=== PATIENT | male | born 1935 | race Caucasian/White ===

== ENCOUNTER 2019-11-29 07:43 | Outpatient (CLI) | payer MEDICARE, OTHER, SELFPAY ==
--- NOTE | 2019-11-29 | ECHO_ITS ---
Patient Info Name: Marvin Henderson Age: 83 years : 1935 Gender: Male Ht: 63 in Wt: 155 lbs BSA: 1.79 m2 HR: 76 bpm BP: 141 / 77 mmHg Heart Rhythm: Sinus Rhythm Technical Quality: Good Exam Date: 11/29/2019 8:35 AM Exam Location: [facility] Patient Status: Outpatient Admit Date: 11/29/2019 Staff Ordering Physician: Nithya Rider MD Street Supervisor: Jose Mejia, RHETTCS, RT Attending Provider: Nithya Rider MD Referring Physician: Adry ENGLAND; Exam Type: CA echo doppler color flow Study Info Indications I50.9 - Heart failure, unspecified Complete two-dimensional, color flow and Doppler transthoracic echocardiogram is performed. Summary 1. Left ventricular chamber dimension is normal. 2. Left ventricular systolic function is normal, estimated at 50-55%. 3. There is moderate aortic valve regurgitation. 4. Very mild amounts of mitral tricuspid and pulmonic insufficiency. 5. Enlarged left atrium. Left Ventricle Left ventricular chamber dimension is normal. Left ventricular systolic function is normal, estimated at 50-55%. The left ventricular diastolic function is normal. Right Ventricle Right ventricular chamber dimension is normal. Left Atria Left atrial chamber dimension is mildly enlarged. Right Atria Right atrial chamber dimension is normal. Aortic Valve The aortic valve is normal. There is moderate aortic valve regurgitation. Pulmonic Valve The pulmonic valve is not well visualized. There is mild pulmonic regurgitation. Mitral Valve The mitral valve has normal leaflets. There is mild mitral valve regurgitation. Tricuspid Valve The tricuspid valve leaflets are normal. There is trace tricuspid valve regurgitation. Pericardium/Pleural The pericardium appears normal. Aorta The aortic root size at the sinus of Valsalva is normal. Left Ventricular Outflow Tract Name Value Normal LVOT 2D LVOT Diameter 1.9 cm LVOT Doppler LVOT Peak Gradient 3 mmHg LVOT Mean Gradient 1 mmHg LVOT VTI 18 cm LVOT VTI/AV VTI Ratio 0.9 LVOT Stroke Volume 54 ml LVOT CO 3.4 l/min LVOT CI 1.9 l/min/m2 Pulmonic Valve Name Value Normal PV Doppler PV Peak Gradient 4 mmHg Mitral Valve Name Value Normal MV Doppler MV Decel Campbell 451 cm/s2 MV PHT 56 ms MV Area (PHT)
== END 2019-11-29 07:44 | disposition home or self-care (01) ==
LOC: ANHCARD 07:45
PROVIDERS: PCP Family Medicine; Visit Provider Internal Medicine Cardiovascular Disease
DX: I50.810 Right heart failure, unspecified (principal); R60.0 Localized edema; I51.7 Cardiomegaly
CPT/HCPCS: 93306

== ENCOUNTER 2019-12-02 07:45 | Outpatient (CLI) | payer MEDICARE, OTHER, SELFPAY ==
[2019-12-02 08:26] LABS: Blood Urea Nitrogen 15 mg/dL (9-20); Calcium 8.9 mg/dL (8.4-10.2); Carbon Dioxide 28 mmol/L (22-30); Chloride 99 mmol/L (98-107); Estimated Glomerular Filt Rate > 60; Glucose 109 mg/dL (75-110); Sodium 134 mmol/L (137-145)
[2019-12-02 08:35] LABS: NT Pro B Type Natriuretic Pept 371 PG/ML (5-100)
[2019-12-02 08:42] LABS: Add Urine Microscopic? YES; Appearance Urine Clear (Clear); Bilirubin Urine Negative (Negative); Blood Urine Negative (Negative); Color Urine Yellow (Yellow); Glucose Urine UA Negative (Negative); Ketones Urine Negative (Negative); Leukocyte Esterase Ur Negative LEU/UL (NEGATIVE); Mucus Urine Moderate /lpf; Nitrate Urine Negative (Negative); Protein Urine Negative (Negative); RBC Urine 0-2 /hpf (0-2); Specific Grav Ur 1.021 (1.001-1.035); WBC Urine 0-3 /hpf (0-3)
== END 2019-12-02 07:46 | disposition home or self-care (01) ==
PROVIDERS: PCP Family Medicine; Visit Provider Internal Medicine Cardiovascular Disease
DX: R60.0 Localized edema (principal); I50.810 Right heart failure, unspecified
CPT/HCPCS: 36415; 80048; 81001; 83880

== ENCOUNTER 2021-03-10 08:21 | Emergency (ER) | payer MEDICARE, OTHER, SELFPAY ==
--- NOTE | ~2021-03-10 | XR_ITS ---
EXAMINATION: XR shoulder RT min 2V DATE: 03/10/2021 09:06 INDICATION: Right shoulder pain. TECHNIQUE: 6 views of right shoulder were obtained. COMPARISON: None. FINDINGS: Bone alignment is normal. There is a permeative lytic lesion of proximal humeral diaphysis. There is a pathologic transverse fracture. The distal fracture fragment demonstrates 10 degrees late ral angulation. There is mild osteoarthritis of glenohumeral joint and severe osteoarthritis of acrom ioclavicular joint. IMPRESSION: 1. Permeative lytic lesion of proximal humeral diaphysis with pathologic fracture, consistent with me tastatic disease versus multiple myeloma. I discussed this result with Dr. Carrillo. Reviewed, dictated and finalized at location A. IMPRESSION: 1. Permeative lytic lesion of proximal humeral diaphysis with pathologic fractu re, consistent with metastatic disease versus multiple myeloma. I discussed thi s result with Dr. Carrillo.
[2021-03-10 08:30] VITALS: BP 173/87; PULSE 60; RESP 16; TEMP 36.6; O2SAT 100
--- NOTE | 2021-03-10 09:07 | ED.GENADULT ---
HPI - General Adult General Chief complaint: Extremity Injury, Upper Stated complaint: Right shoulder pain Time Seen by Provider: 03/10/21 09:02 Source: patient and family Mode of arrival: ambulatory Limitations: no limitations History of Present Illness HPI narrative: 85-year-old man with history of multiple myeloma, here for sudden worsening of right arm pain this morning after he dropped he will. Per report from family and patient he has been complaining of right upper arm pain for the past week, and left rib pain. Patient was treated for multiple myeloma from April 2019 through October 2019. States that he goes to his follow-up appointments and is told he is well. He denies any recent weight loss or worsening fatigue. Onset (ago): week(s) Quality: aching Relieving factors: immobilization Exacerbating factors: movement Associated symptoms: denies other symptoms Related Data Home Medications Medication Instructions Recorded Confirmed alfuzosin mg PO 03/10/21 apixaban [Eliquis] mg 03/10/21 atorvastatin 03/10/21 03/10/21 diltiazem HCl PO 03/10/21 finasteride mg 03/10/21 furosemide 03/10/21 methocarbamol mg 03/10/21 oxybutynin chloride 03/10/21 timolol maleate drp 03/10/21 travoprost [Travatan Z] drp 03/10/21 Allergies Allergy/AdvReac Type Severity Reaction Status Date / Time Wasp Allergy Unknown Unknown Uncoded 03/10/21 08:39 Review of Systems Review of Systems: All systems reviewed & are unremarkable except as noted in HPI and below [facility] Social History Social History (Updated 03/10/21 @ 11:43 by Charity Buitrago PA-C) Smoking status: Never smoker Alcohol intake: current Alcohol use details: 2 beers/day Substance use: never Living arrangements: with family Exam Const: General: no acute distress and alert Orientation/consciousness: patient oriented x3 HENMT: Head: normal to inspection Eyes: Pupils: Equal, round and reactive pupils present Resp: Effort & Inspection: normal respiratory effort Auscultation: clear to auscultation bilaterally Cardio: Rate: regular rate Rhythm: regular rhythm GI: GI Palp: Yes Soft to palpation Skin: General skin exam: normal color Wounds: no wounds Other: no bruising at fracture site Neuro: General: patient oriented x3 Extrem: Right upper extremity: shoulder/upper arm tenderness (pain with movement or touch ) of the mid-shaft humerus and axillary nerve sensory function normal Other: holding arm to side and across abdomen. Psych: Mental Status: mental status grossly normal Course Course Emergency Course: Spoke with Dr. Block, recommends referal to ortho/oncology at [place]. Spoke with Dr. Henley, oncology at [place]. He would like him placed in splint and they will see outpatien with referral to orthopedic surgery. Vital Signs Vital signs: Vital Signs Temperature 36.6 C 03/10/21 08:30 Pulse Rate 60 03/10/21 08:30 Respiratory Rate 16 03/10/21 08:30 Blood Pressure 173/87 H 03/10/21 08:30 Pulse Oximetry 100 03/10/21 08:30 Temperature 36.6 C 03/10/21 08:30 Pulse Rate 56 L 03/10/21 11:16 Respiratory Rate 16 03/10/21 11:16 Blood Pressure 145/77 H 03/10/21 11:16 Pulse Oximetry 99 03/10/21 11:16 Medical Decision Making Vital Signs Vital Signs: Vital Signs Temperature 36.6 C 03/10/21 08:30 Pulse Rate 60 03/10/21 08:30 Respiratory Rate 16 03/10/21 08:30 Blood Pressure 173/87 H 03/10/21 08:30 Pulse Oximetry 100 03/10/21 08:30 Temperature 36.6 C 03/10/21 08:30 Pulse Rate 56 L 03/10/21 11:16 Respiratory Rate 16 03/10/21 11:16 Blood Pressure 145/77 H 03/10/21 11:16 Pulse Oximetry 99 03/10/21 11:16 Lab Data Result diagrams: 03/10/21 11:08 03/10/21 11:07 Labs: Lab Results 03/10/21 03/10/21 Range/Units 11:07 11:08 WBC 7.4 (4.5-10.0) K/mm3 RBC 3.75 L (4.6-6.20) M/mm3 Hgb 12.6 L (14.0-18.0) g/dL Hct 36.7 L (42.0
[2021-03-10 11:13] LABS: Basophils Percent Auto 0.3 % (0.2-1.2); Eosinophils Absolute Auto 0.1 K/mm3 (0-0.3); Eosinophils Percent Auto 0.7 % (0-4.4); Hematocrit 36.7 % (42.0-52.0); Hemoglobin 12.6 g/dL (14.0-18.0); Immature Granulocyte Absolute 0.03 K/mm3 (0.00-0.031); Immature Granulocyte Percent A 0.4 % (0-0.5); Lymphocytes Absolute Auto 1.17 K/mm3 (0.9-3.2); Lymphocytes Percent Auto 15.8 % (18.3-44.2); Mean Corpuscular HGB Conc 34.3 g/dl (32-36); Mean Corpuscular Hemoglobin 33.6 pg (26-34); Mean Corpuscular Volume 97.9 fl (80-100); Mean Platelet Volume 9.8 fl (7.4-10.4); Monocytes Percent Auto 13.5 % (2.6-8.5); Neutrophils Absolute Auto 5.1 K/mm3 (1.3-6.7); Neutrophils Percent Auto 69.3 % (45.5-73.1); Platelet Count Result 166 k/mm3 (150-375); Red Blood Count 3.75 M/mm3 (4.6-6.20); Red Cell Distribution Width 12.7 % (11.5-14.5); White Blood Count 7.4 K/mm3 (4.5-10.0)
[2021-03-10 11:16] VITALS: BP 145/77; PULSE 56; RESP 16; O2SAT 99
[2021-03-10 11:30] LABS: Alanine Aminotransferase 15 U/L (4-50); Albumin Level 3.8 g/dL (3.5-5.1); Alkaline Phosphatase 103 U/L (38-126); Anion Gap 10 mmol/L (8-16); Aspartate Amino Transferase 29 U/L (17-59); Bilirubin,Total 0.6 mg/dL (0.2-1.3); Blood Urea Nitrogen 13 mg/dL (9-20); Calcium 9.3 mg/dL (8.4-10.2); Carbon Dioxide 27 mmol/L (22-30); Chloride 101 mmol/L (98-107); Estimated CRCL calculation 46 ml/min; Estimated Glomerular Filt Rate > 60; Glucose 118 mg/dL (65-110); Potassium 4.4 mmol/L (3.4-5.0); Sodium 138 mmol/L (137-145)
[2021-03-10] MEDS: HYDROcodone/acetaminophen (*CRX) 10-325 MG TABLET 1 TAB PO (12:21)
[2021-03-10 14:27] VITALS: BP 138/66; PULSE 64; RESP 16; O2SAT 99
== END 2021-03-10 14:28 | disposition home or self-care (01) ==
PROVIDERS: Physician Assistant; Emergency Provider Emergency Medicine; PCP Family Medicine
DX: M84.521A Pathological fracture in neoplastic disease, right humerus, initial encounter for fracture (principal)
CPT/HCPCS: 29105; 36415; 73030; 80053; 85025; 99284; A4565; A9270

== ENCOUNTER 2021-05-02 16:34 | Inpatient (IN) | payer MEDICARE, OTHER, SELFPAY ==
[2021-05-02] VITALS (49 sets, daily range): BP systolic 102–127; BP diastolic 59–81; PULSE 63–78; RESP 9–21; TEMP 36.6–36.8; O2SAT 89–95; BMI 23.7
--- NOTE | ~2021-05-02 | XR_ITS ---
EXAMINATION: XR chest 1V portable DATE: 05/03/2021 07:05 INDICATION: Shortness of breath. TECHNIQUE: A single frontal view of the chest was obtained. COMPARISON: Chest single view 05/02/2021, chest CT 08/05/2018 FINDINGS: There are airspace opacities in the perihilar regions and lower lung zones. There is a diff use interstitial pattern. No pleural effusion or pneumothorax. The heart size is normal. There is int ernal fixation of right humerus. IMPRESSION: 1. Worsened diffuse lung disease, consistent with moderate pulmonary edema versus pneumonia. Reviewed, dictated and finalized at location A. E REELING MACHINE OPERATOR IMPRESSION: 1. Worsened diffuse lung disease, consistent with moderate pulmonary edema vers us pneumonia.
--- NOTE | ~2021-05-02 | XR_ITS ---
EXAMINATION: XR chest 1V portable DATE: 05/04/2021 05:57 INDICATION: Respiratory failure. TECHNIQUE: A single frontal view of the chest was obtained. COMPARISON: Chest single view 05/03/2021 FINDINGS: There are airspace opacities in all right lung zones and in left mid and lower lung zones w ith a perihilar and lower lung predominance. No pleural effusion or pneumothorax. The heart size is n ormal. There is internal fixation of right humerus. IMPRESSION: 1. Diffuse lung disease with mild worsening on the right and improvement on the left, consistent with moderate pulmonary edema versus pneumonia. Reviewed, dictated and finalized at location A. NING FRAME CLEANER
--- NOTE | ~2021-05-02 | XR_ITS ---
XR chest 1V portable 05/02/2021 18:30 Indication: Syncope. History of A. fib. Procedure: AP portable chest Comparison: 08/05/2018 Findings: There is bilateral airspace disease of the lower lungs. Cardiomegaly. There is atherosclero sis. No significant effusion or pneumothorax. No acute osseous abnormality. Impression: 1: Bibasilar airspace disease, compatible with pneumonia. Reviewed, dictated and finalized at location A. ERCAM PROGRAMMER Impression: 1: Bibasilar airspace disease, compatible with pneumonia.
--- NOTE | ~2021-05-02 | CT_ITS ---
EXAMINATION: CT facial bones wo con DATE: 05/03/2021 16:43 INDICATION: Right parotid nodule. Multiple myeloma. TECHNIQUE: High resolution computed tomography (CT) of the maxillofacial bones was performed without intravenous contrast. Additional sagittal and coronal reconstructions were performed. Automated expos ure control and iterative reconstruction technique were employed. The dose-length product was 297.22 mGy-cm. COMPARISON: None FINDINGS: Partially visualized right frontal deep scalp lipoma . Large lytic lesion completely occupying the me dullary space at the right mandibular condyle with small regions of full-thickness cortical erosion a s well as with extension into the neck of the mandible where there is a pathologic fracture. There is extraosseous extension of soft tissue density extending superficially from the lateral margin of the medial epicondyle which measures approximately 1.7 x 1.4 x 1.1 cm which appears to infiltrate the de ep margin of the right parotid. There is mild likely reactive edema along the inferior and superficia l margin of the right parotid likely related to the fracture. No other masses identified or pathologi gianluca enlarged lymphadenopathy at the visualized face or upper neck. Severe spondylosis in the visual ized mid to upper cervical spine. Additional small lucent lesions in the cervical spine, the largest but still subcentimeter lesions at the right posterior inferior aspect of the C2 vertebral body and a t the left lateral mass of C2 which are suspicious for additional multiple myeloma. Changes of bilate ral intraocular lens replacement. Mastoid air cells and middle ear cavities are clear. Prior left max illary sinus antral window procedure. IMPRESSION: 1. Large lytic lesion at the right mandibular condyle with associated pathologic fracture and extra o sseous extension of a soft tissue mass infiltrating the deep margin of the right parotid most consist ent with provided history of multiple myeloma. 2. A couple additional smaller lytic lesions at C2 also suspicious for multiple myeloma. Reviewed, dictated and finalized at location H. DREN'S BOOK AUTHOR IMPRESSION: 1. Large lytic lesion at the right mandibular condyle with associated pathologi c fracture and extra osseous extension of a soft tissue mass infiltrating the d eep margin of the right parotid most consistent with provided history of multip le myeloma. 2. A couple additional smaller lytic lesions at C2 also suspicious for multiple myeloma.
--- NOTE | ~2021-05-02 | CT_ITS ---
EXAMINATION: CT brain wo con DATE: 05/02/2021 17:37 INDICATION: Near syncope TECHNIQUE: Computed tomography (CT) of the head was performed without intravenous contrast. The dose- length product was 605.33 mGy-cm. Automated exposure control and iterative reconstruction technique w ere employed. COMPARISON: CT dated 06/11/2017 FINDINGS: No acute intracranial hemorrhage, infarction, mass or mass effect. Paranasal sinuses and ma stoids are pneumatized. Generalized atrophy. There are scattered mild periventricular and subcortical white matter changes, most likely related to small vessel ischemic disease (microangiopathy). Chroni c fracture deformity of the right zygomatic arch. IMPRESSION: 1. No acute intracranial abnormality. 2: Chronic age-related findings. Reviewed, dictated and finalized at location A. NCE WHEEL MOTION INSPECTOR
--- NOTE | ~2021-05-02 | US_ITS ---
EXAMINATION:US venous doppler LE BI INDICATION:Elevated d-dimer TECHNIQUE: Multiple grayscale, color flow and Doppler images of the right and left lower extremity de ep venous systems were obtained and reviewed. COMPARISON:No prior studies for comparison. FINDINGS: The common femoral, superficial femoral and popliteal veins demonstrate normal respiratory variation, augmentation and compressibility. Color flow is also seen within the posterior tibial, pe roneal, greater saphenous and profunda veins. IMPRESSION: 1: No lower extremity deep venous thrombosis. Reviewed, dictated and finalized at location A. DOZER ENGINEER
--- NOTE | ~2021-05-02 | US_ITS ---
EXAMINATION: US carotid duplex BI DATE: 05/03/2021 10:54 INDICATION: Syncopal episode TECHNIQUE: Grayscale, color Doppler, and pulsed Doppler images of the cervical carotid arteries were obtained. The degree of vessel stenosis is placed in one of the following categories: normal, <50%, 5 0-69%, >=70% but less than near-occlusion, near-occlusion, or total occlusion. Note that percent sten osis relative to normal distal artery lumen diameter is indirectly measured from velocity measurement s as described by David, et al. Radiology 2003; 229:340-346. Notes: Normal: Peak systolic velocity <125 centimeters/sec and no plaque <50%. Peak systolic velocity <125 ( EDV <40; ICA/CCA PSV ratio <2.0; used these factors only a tandem lesions or low cardiac output or co ntralateral disease) 50-69 %: PSV 125-230 (EDV 40-100; ratio 2-4) >= 70% but less than near occlusion: PSV greater than 230 (EDV > 100; ratio> 4.0) Near Occlusion: PSV that is variable; markedly narrowed lumen Occlusion: Absent flow on color/spectral Doppler and no lumen on yuan scale. COMPARISON: None. FINDINGS: RIGHT: The right common carotid artery (CCA) peak systolic velocity (PSV) is 91 cm/s. The right internal car otid artery (ICA) PSV is 91 cm/s. The right ICA end-diastolic velocity (EDV) is 18 cm/s. The right IC A/CCA PSV ratio is 1.0. The external carotid artery (ECA) PSV is 81 cm/s. There is antegrade flow in the right vertebral artery. LEFT: The left CCA PSV is 98 cm/s. The left ICA PSV is 94 cm/s. The left ICA EDV is 22 cm/s. The left ICA/C CA PSV ratio is 1.0. The ECA PSV is 64 cm/s. There is antegrade flow in the left vertebral artery. IMPRESSION: 1. Less than 50% stenosis in the right internal carotid artery by sonographic criteria. 2. Less than 50% stenosis in the left internal carotid artery by sonographic criteria. Reviewed, dictated and finalized at location A. NEER STATION MAINLINE IMPRESSION: 1. Less than 50% stenosis in the right internal carotid artery by sonographic joão ballesteros. 2. Less than 50% stenosis in the left internal carotid artery by sonographic rey helm.
--- NOTE | 2021-05-02 17:08 | ED.GENADULT ---
HPI - General Adult General Chief complaint: Syncope Stated complaint: NEAR SYNCOPE Time Seen by Provider: 05/02/21 16:35 Source: patient and RN notes reviewed History of Present Illness HPI narrative: Patient is a 85 y/o male for unresponsive episode. states that they were both walking back to the house and he began to fall over. She caught him and supported him to back to the house. She sat him down and he was not responsive. She state that the he seemed to be gasping for air. This lasted up to 1 minute an he became awake. He has no complaint at this time. Related Data Home Medications Medication Instructions Recorded Confirmed alfuzosin mg PO 03/10/21 apixaban [Eliquis] mg BID 03/10/21 atorvastatin DAILY 03/10/21 03/10/21 diltiazem HCl PO DAILY 03/10/21 finasteride mg DAILY 03/10/21 furosemide DAILY 03/10/21 oxybutynin chloride QPM 03/10/21 timolol maleate drp BID 03/10/21 travoprost [Travatan Z] drp QPM 03/10/21 dexamethasone 05/02/21 05/02/21 lenalidomide [Revlimid] mg PO 05/02/21 morphine 05/02/21 05/02/21 travoprost [Travatan Z] drp QPM 05/02/21 Allergies Allergy/AdvReac Type Severity Reaction Status Date / Time bee venom protein (honey bee) Allergy Unknown Verified 05/02/21 16:46 [bees] Wasp Allergy Unknown Unknown Uncoded 05/02/21 16:46 Review of Systems Constitutional: Constitutional: Denies chills, Denies fever(s), Denies headache(s) and Denies weakness Eyes: Eyes: Denies blurry vision ENT: Denies headache(s) and Denies neck pain Cardiovascular: Cardiovascular: Denies chest pain and Denies dyspnea Respiratory: Respiratory: Denies cough and Denies dyspnea Gastrointestinal: Gastrointestinal: Denies abdominal pain, Denies diarrhea, Denies nausea and Denies vomiting Genitourinary: Genitourinary: Denies hematuria and Denies dysuria Musculoskeletal: Musculoskeletal: Denies back pain and Denies neck pain Neurologic: Reports syncope, Denies headache(s) and Denies weakness [facility] Past Medical History Medical History (Updated 05/02/21 @ 23:02 by Yun Asher MD) Anemia Atrial fibrillation BPH (benign prostatic hyperplasia) Glaucoma Hepatitis B carrier History of prostate cancer History of subdural hematoma Hyperlipidemia Multiple myeloma Right humeral fracture 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 Surgical History Surgical History (Updated 05/02/21 @ 22:44 by Abril Hermosillo NP) Cataract extraction status History of cranial surgery Barrel hole due to subdural hematoma S/P ORIF (open reduction internal fixation) fracture Right humerus Family History Family History (Updated 05/02/21 @ 22:46 by Abril Hermosillo NP) Mother Cerebrovascular accident Father Carcinoma of colon Sibling Carcinoma of colon Social History Social History (Updated 05/02/21 @ 22:47 by Abril Hermosillo NP) Social History: The patient served in the [employer] for 30 years where he worked in [employer]. He is and lives with his who still works full-time. The patient and his have adopted a daughter. He is a lifelong nonsmoker. His is the durable power privacy attorney for healthcare. Code status full code Smoking status: Never smoker Alcohol intake: current Alcohol use details: 2 beers/day Substance use: never Exam Const: General: no acute distress and well developed Orientation/consciousness: oriented to person, oriented to place, oriented to time and patient oriented x3 HENMT: Head: normocephalic Ears: external ears normal General nose exam: Normal external nose present Eyes: General: appearance normal, both eyes and all related structures Conjunctivae: conjunctivae normal Neck: Neck: normal visual inspection and full ROM Chest: Chest palpation & inspection: normal inspection of the chest and no tenderness Resp: Effort & Inspection: normal respiratory effort Auscultation: clear to auscultation bilaterally Cardio: Rate: regu
--- NOTE | 2021-05-02 17:16 | ECG_ITS ---
Measurements Intervals [place] Rate: 68 P: -3 CT: 172 QRS: 44 QRSD: 89 T: 44 QT: 422 QTc: 452 Interpretive Statements SINUS RHYTHM WITH SINUS ARRHYTHMIA INCOMPLETE RIGHT BUNDLE BRANCH BLOCK MINIMAL Q WAVES- ANTEROLATERAL LEADS BASELINE WANDER- III BORDERLINE ECG Electronically Signed On 05-02-2021 20:13:18 MANAGER OF CASE by Nam Rosenberg D.O.
--- NOTE | 2021-05-02 17:37 | PC.NURSE ---
Pt off floor to radiology.
[2021-05-02] MEDS: SODIUM CHLORIDE 0.9% IV 1,000 ML 999 ML IV CONT (17:43)
[2021-05-02 18:00] LABS: Basophils Percent Auto 0.1 % (0.2-1.2); Eosinophils Percent Auto 0.4 % (0-4.4); Hematocrit 22.3 % (42.0-52.0); Hemoglobin 7.4 g/dL (14.0-18.0); Immature Granulocyte Absolute 0.04 K/mm3 (0.00-0.031); Immature Granulocyte Percent A 0.5 % (0-0.5); Lymphocytes Absolute Auto 0.79 K/mm3 (0.9-3.2); Lymphocytes Percent Auto 9.6 % (18.3-44.2); Mean Corpuscular HGB Conc 33.2 g/dl (32-36); Mean Corpuscular Hemoglobin 34.4 pg (26-34); Mean Corpuscular Volume 103.7 fl (80-100); Mean Platelet Volume 10.5 fl (7.4-10.4); Monocytes Absolute Auto 0.7 K/mm3 (0.1-0.6); Monocytes Percent Auto 7.9 % (2.6-8.5); Neutrophils Absolute Auto 6.7 K/mm3 (1.3-6.7); Neutrophils Percent Auto 81.5 % (45.5-73.1); Platelet Count Result 124 k/mm3 (150-375); Red Blood Count 2.15 M/mm3 (4.6-6.20); Red Cell Distribution Width 15.6 % (11.5-14.5); White Blood Count 8.2 K/mm3 (4.5-10.0)
[2021-05-02 18:10] LABS: Alanine Aminotransferase 39 U/L (4-50); Albumin Level 3.4 g/dL (3.5-5.1); Alkaline Phosphatase 109 U/L (38-126); Anion Gap 11 mmol/L (8-16); Aspartate Amino Transferase 89 U/L (17-59); Bilirubin,Total 0.9 mg/dL (0.2-1.3); Blood Urea Nitrogen 38 mg/dL (9-20); Calcium 7.3 mg/dL (8.4-10.2); Carbon Dioxide 23 mmol/L (22-30); Chloride 88 mmol/L (98-107); Estimated CRCL calculation 27 ml/min; Estimated Glomerular Filt Rate 45; Glucose 153 mg/dL (65-110); Potassium 4.8 mmol/L (3.4-5.0); Sodium 122 mmol/L (137-145)
[2021-05-02 18:40] LABS: Add Urine Microscopic? YES; Appearance Urine Cloudy (Clear); Bacteria Urine Trace /hpf; Bilirubin Urine Negative (Negative); Blood Urine Negative (Negative); Color Urine Yellow (Yellow); Glucose Urine UA Negative (Negative); Hyaline Casts Urine 15-19 /lpf; Ketones Urine Negative (Negative); Leukocyte Esterase Ur Negative LEU/UL (Negative); Mucus Urine Rare /lpf; Nitrate Urine Negative (Negative); Protein Urine 1+ mg/dL (Negative); Specific Grav Ur 1.016 (1.001-1.035); Squamous Epithelial Cell Urine Rare /hpf (Few); Urobilinogen Urine Negative mg/dL (<2.0)
[2021-05-02 19:03] LABS: NT Pro B Type Natriuretic Pept 13500 pg/mL (5-100)
[2021-05-02] MEDS: SODIUM CHLORIDE 0.9% IV 1,000 ML 125 ML IV CONT (19:12)
--- NOTE | 2021-05-02 20:33 | PC.NURSE ---
Confirmed with pharmacy, pt's Reclimid and Alfuzosin are both non-formulary. to retrieve medications from home.
--- NOTE | 2021-05-02 20:49 | PC.NURSE ---
Rapid COVID sent to lab, lab called to alert.
--- NOTE | 2021-05-02 22:25 | PM.IMHP ---
H&P: HPI History of Present Illness Date/Time: 05/02/21 this is an 85-year-old male patient who has a history of multiple myeloma. He has been receiving treatment including zometa and Revlimid. The patient's oncologist is Dr. Barrios at the [facility]. The patient does have a history of having atrial fibrillation 1 time and was placed on Eliquis and diltiazem. The patient has been complaining of feeling weak. The is at the bedside answering questions. The stated that they are both walking back into the house and the started to fall over. She caught him and support him gotten back to the house. The patient was sat down on a chair and was not answering his . She stated he had his eyes open and was gasping for air. This lasted for approximately 1 minute and then he became more awake. The patient has been coughing for at least 1 week. His rapid COVID test was negative. Chest x-ray was read as bibasilar airspace disease, compatible with pneumonia. H&H is 7.4 and 22.3. Creatinine is 1.5 and sodium was 122. Calcium is low at 7.3. His troponin 4.550 [place] 3[place] [address]. EKG was read as sinus rhythm with sinus arrhythmia incomplete right bundle-branch block. Minimal Q-waves anterior lateral leads. Cardiology has been consulted. Patient has multiple bruises on both of his arms. Head CT was read as no acute intracranial abnormality. Chronic age-related findings. The patient was given IV fluids. The patient is being admitted for observation status on the date of service of 05/02/2021. Chief Complaint: Syncopal episode Review of Systems Review of Systems: All systems reviewed & are unremarkable except as noted in HPI and below Constitutional: Constitutional: Reports as per HPI and Reports no additional constitutional complaints Eyes: Eyes: Reports as per HPI and Reports no additional eye complaints ENT: Reports system reviewed and no additional complaints, except as documented and Reports Normal hearing present Cardiovascular: Cardiovascular: Reports no additional cardiovascular complaints Respiratory: Respiratory: Reports no additional respiratory complaints and Reports no additional respiratory complaints Gastrointestinal: Gastrointestinal: Reports as per HPI and Reports no additional gastrointestinal complaints Musculoskeletal: Musculoskeletal: Reports no additional musculoskeletal complaints Integumentary/Breasts: Skin/Breast: Reports system reviewed and no additional complaints, except as docu and Reports as per HPI Neurologic: Reports system reviewed and no additional complaints, except as documented, Reports as per HPI and Reports Normal hearing present Psychiatric: Psychiatric: Reports no additional psychiatric complaints and Reports as per HPI Endocrine: Endocrine: Reports no additional endocrine complaints Hematologic/Lymphatic: Hematologic/Lymphatic: Reports no additional hematologic/lymphatic complaints Allergic/Immunologic: Allergic/Immunologic: Reports no additional allergic/immunologic complaints [facility] Past Medical History Medical History (Updated 05/02/21 @ 22:45 by Abril Hermosillo NP) Anemia Atrial fibrillation BPH (benign prostatic hyperplasia) Glaucoma Hepatitis B carrier History of prostate cancer History of subdural hematoma Hyperlipidemia Multiple myeloma Right humeral fracture 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 Surgical History Surgical History (Updated 05/02/21 @ 22:44 by Abril Hermosillo NP) Cataract extraction status History of cranial surgery Barrel hole due to subdural hematoma S/P ORIF (open reduction internal fixation) fracture Right humerus Family History Family History (Updated 05/02/21 @ 22:46 by Abril Hermosillo NP) Mother Cerebrovascular accident Father Carcinoma of colon Sibling Carcinoma of colon Social History Social History (Updated 05/02/21 @ 22:47 by Abril Hermosillo NP) Social History: The patient served in the [employer]
[2021-05-02] MEDS: BISACODYL 5 MG TABLET EC PO (23:31)
[2021-05-02 23:33] LABS: Hematocrit 21.8 % (42.0-52.0); Hemoglobin 7.2 g/dL (14.0-18.0)
[2021-05-03] VITALS (19 sets, daily range): BP systolic 83–117; BP diastolic 54–74; PULSE 58–156; RESP 12–24; TEMP 36–36.5; O2SAT 84–100
--- NOTE | 2021-05-03 01:34 | ADMGEN ---
This patient, Marvin Henderson, was admitted to IMU Room 232-01 on 05/02/21 at 2215. Patient/family oriented to hospital policies and general routines including ID bracelet, bed and alarms, visiting hours, pain management, procedures, bathroom and other care routines, personal items, smoking policy, room service/diet, and visiting hours. Information on how to activate the Rapid Response Team has been discussed. Patient/Family are encouraged to report perceived risks to care and to ask questions if they do not understand what they are told or what they should do.
[2021-05-03] MEDS: MORPHINE SULFATE (*CRX) 2 MG/ML INJ IV PUSH (03:10)
[2021-05-03 04:59] LABS: Basophils Percent Auto 0.1 % (0.2-1.2); Eosinophils Percent Auto 0.3 % (0-4.4); Hematocrit 22.7 % (42.0-52.0); Hemoglobin 7.3 g/dL (14.0-18.0); Immature Granulocyte Absolute 0.06 K/mm3 (0.00-0.031); Immature Granulocyte Percent A 0.8 % (0-0.5); Immature Platelet Fraction Pct 5.3 % (0.9-11.2); Lymphocytes Absolute Auto 0.46 K/mm3 (0.9-3.2); Lymphocytes Percent Auto 6.2 % (18.3-44.2); Mean Corpuscular HGB Conc 32.2 g/dl (32-36); Mean Corpuscular Hemoglobin 33.2 pg (26-34); Mean Corpuscular Volume 103.2 fl (80-100); Mean Platelet Volume 10.6 fl (7.4-10.4); Monocytes Percent Auto 13.2 % (2.6-8.5); Neutrophils Absolute Auto 5.9 K/mm3 (1.3-6.7); Neutrophils Percent Auto 79.4 % (45.5-73.1); Platelet Count Result 120 k/mm3 (150-375); Red Cell Distribution Width 15.6 % (11.5-14.5); White Blood Count 7.5 K/mm3 (4.5-10.0)
[2021-05-03 05:18] LABS: Lactic Acid Reflex 1.1 mmol/L (0.7-2.1)
[2021-05-03 05:38] LABS: Alanine Aminotransferase 38 U/L (4-50); Albumin Level 2.9 g/dL (3.5-5.1); Alkaline Phosphatase 99 U/L (38-126); Anion Gap 10 mmol/L (8-16); Aspartate Amino Transferase 69 U/L (17-59); Bilirubin,Total 0.6 mg/dL (0.2-1.3); Blood Urea Nitrogen 27 mg/dL (9-20); CRP 6.2 mg/dL (<1.0); Carbon Dioxide 21 mmol/L (22-30); Chloride 94 mmol/L (98-107); Estimated CRCL calculation 45 ml/min; Estimated Glomerular Filt Rate > 60; Glucose 118 mg/dL (65-110); Lactate Dehydrogenase 598 U/L (313-618); Magnesium 2.5 mg/dL (1.6-2.3); Potassium 4.5 mmol/L (3.4-5.0); Sodium 125 mmol/L (137-145)
[2021-05-03] MEDS: SODIUM CHLORIDE 0.9% IV 1,000 ML 75 ML IV CONT (06:45)
[2021-05-03] MEDS: MORPHINE SULFATE (*CRX) 15 MG TAB IR PO (06:45)
[2021-05-03] MEDS: FUROSEMIDE INJ 40 MG/4 ML VIAL IV PUSH (06:57)
--- NOTE | 2021-05-03 07:07 | ECG_ITS ---
Measurements Intervals [place] Rate: 145 P: [place]: 0 QRS: 46 QRSD: 210 T: 0 QT: 293 QTc: 456 Interpretive Statements ATRIAL FIBRILLATION WITH RAPID VENTRICULAR RESPONSE INTRAVENTRICULAR CONDUCTION DELAY ST ABNORMALITY IN DIFFUSE LEADS- CONSIDER ISCHEMIA BASELINE WANDER- I, II, III, AVR, AVL, AVF, V1 ABNORMAL ECG Electronically Signed On 05-03-2021 8:35:19 CHEESE [employer]OOKER by Nam Rosenberg D.O.
[2021-05-03] MEDS: MORPHINE SULFATE (*CRX) 2 MG/ML INJ (07:14)
[2021-05-03] MEDS: NITROGLYCERIN OINTMENT 1 INCH DOSE TRANSDERM (07:17)
[2021-05-03] MEDS: AMIODARONE 150 MG/D5W 100 ML 150 MG/100 ML BAG 600 MG IV CONT (07:23)
[2021-05-03 07:25] LABS: Alveolar/Arterial O2 Gradient 475.4 mmHg; Fractional Inspired Oxygen 80 %; HCO3 ABG 14.5 mEq/l (22.0-26.0); Oxygen Content ABG 11.2 %vol (16.0-22.0); Oxygen Saturation ABG 94.6 % (95.0-100.0); PO2 ABG 70.1 mmHg (80.0-100.0); PO2 FiO2 Ratio Arterial Blood 0.88 %; Total Hemoglobin 8.7 g/dL (12.0-18.0); pH ABG 7.403 (7.350-7.450)
[2021-05-03 07:28] LABS: Device HIGH FLOW NASAL CANN; PCO2 ABG 23.7 mmHg (35.0-45.0); Site Drawn LEFT BRACHIAL
[2021-05-03] MEDS: AMIODARONE 360 MG/D5W 200 ML 360 MG/200 ML BAG 33.33 MG IV CONT (07:51)
--- NOTE | 2021-05-03 08:14 | PCOTNOTE ---
Attempted to see for evaluation for occupational therapy. Per. nurse report, HOLD pt. for evaluation until tomorrow. Will follow-up when appropriate for evaluation.
--- NOTE | 2021-05-03 08:41 | PCPTNOTE ---
Attempted to see for evaluation for physical therapy. Per. nurse report, HOLD pt. for evaluation until tomorrow. Will follow-up when appropriate for evaluation.
--- NOTE | 2021-05-03 08:50 | PC.NURSE ---
0640-Pt's bed alarm activated and this RN went in room to check on Pt. Pt found sitting at side of bed using the urinal. Audible wheezing noted and Pt C/O severe SOB. HR 140's A-fib w/RVR, RR 24, SPO2 84% on 2L NC. LS-coarse with rhonchi and wheezing. Pt assisted back to bed with HOB elevated. Pt C/O 10/10 chest pain. Pt placed on 15L HF NC w/humidity with O2 sats increasing to 93%. Dr. Govea updated with Pt's condition. 0657-Lasix 40mg IVP x1 dose given as ordered. 0706-Stat EKG obtained and stat chest x-ray obtained. EKG showing A-fib w/RVR w/ST depression. Urinary catheter placed as ordered. 0710-Dr. Govea at bedside to assess Pt. 0714-Morphine 2mg IVP and 1 inch of NTP given as ordered. 0716-Stat ABG obtained. Amiodarone IV loading dose hung as ordered. 0718-Dr. Govea spoke to cardiology and updated them with Pt's condition. 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 0730-Pt appears more comfortable and states that his pain has improved. HR 110's, SPO2 94% on 15L HF NC. Pt care handed off to DEEPA Pitt.
--- NOTE | 2021-05-03 09:37 | PC.NURSE ---
0911-Spoke with Pt's , Leticia and updated her on Pt's condition.
[2021-05-03] MEDS: TIMOLOL MALEATE 0.5% OP SOLN 5 ML BOTTLE 1 DROP EACH EYE ×2 (10:06→16:20)
[2021-05-03 10:45] LABS: Hematocrit 22.3 % (42.0-52.0); Hemoglobin 7.5 g/dL (14.0-18.0)
--- NOTE | 2021-05-03 11:50 | PM.CNCAR ---
Assessment and Plan Additional Plan This is a 85-year-old man with a history of paroxysmal atrial fibrillation previously managed with the combination of diltiazem and apixaban. He had another symptomatic recurrence of this arrhythmia this morning and there was some concern at the time of the onset of this that this represented an ST-elevation CA. As I mentioned above I did not agree with this impression having seen the ECG while I was driving over here. He has now been given metoprolol and amiodarone his heart rate is in the 80s to 90s although still in atrial fib he feels much better with heart rate being better controlled. For now I would keep him on the IV amiodarone in hopes that he will convert back to sinus rhythm since that just began again this morning. With some hesitation I will resume his apixaban since he is in AFib with significant malignancy and not systemically anticoagulated. I do not think this gentleman is a candidate for any sort of invasive assessment of his coronary arteries given his age, frailty, advancing malignancy and significant anemia. For those reasons I will not hold the apixaban at this time. Obviously his prognosis is guarded with all of these comorbidities. Will follow and treat with you while he is in the hospital. Javier Augustin MD [facility] History of Present Illness History of Present Illness Consult date/time: 05/03/21 11:50 Consult reason: chest pain and atrial fibrillation Reason For Visit: syncope, elevated troponin Narrative: This is a pleasant but unfortunately very ill elderly gentleman I am seeing today at the request of the hospitalist because of symptoms of chest pain that development of her atrial fib with a rapid ventricular response earlier this morning. When I was driving over here in my vehicle the hospitalist called me on my cell phone and send me the patient's EKG concerning that the patient was having a ST-elevation CA. I looked at the ECG and saw what appears to be AFib with rapid ventricular response with some ST segment depression but no evidence of STEMI. On the telephone I ordered some IV metoprolol as well as IV amiodarone. The patient came under much better heart rate control and became much more comfortable following those measures. I have had a chance to see the patient at this time and review his medical records. He apparently has a history of paroxysmal atrial fibrillation as well as diastolic heart failure and for this reason follows in my office with Dr. Rider. He also has a history of right ventricular systolic dysfunction, significant pulmonary hypertension and prior history of edema presumably because of this. His case is also complex because he has a history of prostate cancer in the past which has been radiated an active multiple myeloma which is being treated by an oncologist in [place] at [facility]. According to the chart the patient was brought in here last evening because he had an episode at home where he abruptly became unresponsive. According to the notes the patient was ambulating with assistance with his and became unresponsive and sat down. After about 1 minute he regained rate responsiveness. 911 was called he was brought to the emergency room at which time he did not have much in the way of any specific complaints. He is significantly anemic with a hemoglobin just over 7 g and has an elevated troponin levels over 4 on admission declining to 3 on the 2nd sample. He is not reporting any chest pain. He has been managed as an outpatient because of his AFib with apixaban and diltiazem. He is not known to have coronary disease he did have a stress test in the outpatient setting over a year ago which not show any ischemic burden. His admitting electrocardiogram showed sinus rhythm with minimal ST segment changes. This morning's ECG when he was in rapid atrial fib showed relatively severe ST depression in the lateral precordial leads. The physician who called me this mo
--- NOTE | 2021-05-03 13:25 | PM.IMPN ---
Progress Note: A&P Assessment and Plan (1) Acute respiratory failure: Code(s): J96.00 - Acute respiratory failure, unspecified whether with hypoxia or hypercapnia Status: Acute Assessment and Plan: Patient presented with hypoxia. On 2 L nasal cannula but today has required 15 L. ABG today 7.40/ on 15 HFNC. His rapid COVID test was negative. PCR has been ordered. Doubt PE due to the fact that he was on Eliquis on admsision. Noel check LE doppelrs. We also have speech therapy evaluate the patient. Echocardiogram has been ordered. X-ray does not appear worse. He is not on Lasix. [place] BNP was 74361. Blood pressure is soft so will hold off on Lasix at this time. Consider Lasix if his blood pressure improves and/or his COVID test is negative. Check bedside swallow. (2) Non-STEMI (non-ST elevated myocardial infarction): Code(s): I21.4 - Non-ST elevation (NSTEMI) myocardial infarction Status: Acute Assessment and Plan: Patient's troponins was 4.5 on admission. It has improved. EKG on admission showed no acute ST or T-wave changes. When patient was in atrial fibrillation with a heart rate of 145, he had diffuse ST depression mostly in the anterior lateral leads. The patient did have a syncopal episode. He may have had a brief hypotensive event related to dehydration and his medications. The patient also recently was started on Revlimid with one of the severe reactions being myocardial infarction. Cardiology has been consulted. Echocardiogram has been ordered. Add aspirin. Continue Lipitor. (3) Pneumonia: Code(s): J18.9 - Pneumonia, unspecified organism Status: Acute Assessment and Plan: The patient has been wheezing and is hypoxic. He is not on oxygen at home but is on O2 at this time. He did have a negative rapid COVID test. Chest x-ray shows bibasilar airspace disease compatible with pneumonia with repeat x-ray today reviewed showing worsening findings. WBC normal but CRP 6.2. He has been started on Rocephin and azithromycin. Blood cultures pending. Continue to monitor. (4) Atrial fibrillation: Code(s): I48.91 - Unspecified atrial fibrillation Status: Chronic Assessment and Plan: Patient developed AFib with RVR. He was started on amiodarone drip. His Eliquis was resumed. TSH is normal. Appreciate cardiology input (5) Acute kidney injury: Code(s): N17.9 - Acute kidney failure, unspecified Status: Acute Assessment and Plan: Patient has a normal baseline Cr. Cr 1.5 on admission felt related to dehydration. Cr has improved with IV fluids. Hold any nephrotoxic medication. Contineu to hold his diuretics. Continue to follow. (6) Syncopal episodes: Code(s): R55 - Syncope and collapse Status: Acute Assessment and Plan: Patient became weak but able to help him into the house. When he sat, he was briefly unresponsive. Consider orthostatic HoTN related to dehydration and/or medications. Carotid US showing <50% stenosis bilaterally. Echo ordered. Continue monitoring orthostatic blood pressures every shift. (7) Hyponatremia: Code(s): E87.1 - Hypo-osmolality and hyponatremia Status: Acute Assessment and Plan: Na normal prior to admission. Na 122 and better at 125 today. Possibly related to dehydration. Check urine studies. (8) Anemia: Code(s): D64.9 - Anemia, unspecified Status: Chronic Assessment and Plan: Hgb 12.6 in February but 7.4 on admission. Hgb has been stable since admission. Anemia felt related to the MM and from the treatment. Stool for occult blood has been ordered. Will check iron studies, etc. Continue to monitor H&H. Eliquis has been resumed Plt count also trending down. Probably consumptive. Follow closely. (9) Multiple myeloma: Code(s): C90.00 - Multiple myeloma not having achieved remission Status: Chronic Assessment
--- NOTE | 2021-05-03 15:34 | PDONCCN ---
HPI - Date of Consult Date/Time: 05/03/21 15:34 Requesting Physician: Carolyne Maxwell MD Primary Care Provider: Trinity GongoraMD - Consult Narrative Reason for consult: 85 yo male who presented with acute repiratory failure and history of Myelo Narrative: Marvin Henderson is a 85 year old male presented with Acute Respiratory failure r/o COVID is known to have Myeloma ans has been followed by Dr Barrios at [facility]- pt can not recall how long he has had Myeloma foa a while but can not recall how long and what he has received - he has undergone simulation for a right humeral lesion and is awaiting radiation. there is also a history of Prostate cancer. His was there to provide a more detailed history. His main complaint at this time is constipation. His Anemia is most likely long standing and secondary to his myeloma Review of Systems - Constitutional Reports anorexia - Cardiovascular Reports chest pain - Respiratory Reports dyspnea - Gastrointestinal Reports change in bowel habits - Neurologic Reports system reviewed and no additional complaints, except as documented, Reports hearing normal, Reports syncope, Reports weakness, Denies headache(s) [facility] Medical History: Medical History (Last Reviewed 05/03/21 @ 16:21 by Davonte Maria MD) Anemia Atrial fibrillation BPH (benign prostatic hyperplasia) Glaucoma Hepatitis B carrier History of prostate cancer History of subdural hematoma Hyperlipidemia Multiple myeloma Right humeral fracture 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 Surgical History: Surgical History (Last Reviewed 05/03/21 @ 16:21 by Davonte Maria MD) Cataract extraction status History of cranial surgery Barrel hole due to subdural hematoma S/P ORIF (open reduction internal fixation) fracture Right humerus Family History: Family History (Last Reviewed 05/03/21 @ 16:21 by Davonte Maria MD) Mother Cerebrovascular accident Cancer Father Carcinoma of colon Sibling Carcinoma of colon BPH (benign prostatic hyperplasia) Cancer Heart problem - Social History Social History: Social History (Last Reviewed 05/03/21 @ 16:22 by Davonte Maria MD) Alcohol Use: Alcohol intake: current Drinks per week: 7 Alcohol use details: 2 beers/day Substance Use: Substance use: never Substance use type: does not use Others: Spiritual care concerns: No Smoking Status: Smoking status: Never smoker Second hand tobacco smoke exposure: No Meds Home Medications Medication Instructions Recorded Confirmed Type alfuzosin 10 mg PO HS 03/10/21 05/03/21 History apixaban [Eliquis] 5 mg PO BID 03/10/21 05/03/21 History atorvastatin 40 mg PO HS 03/10/21 05/03/21 History diltiazem HCl 120 mg PO DAILY 03/10/21 05/03/21 History finasteride 5 mg PO HS 03/10/21 05/03/21 History furosemide 20 mg PO DAILY 03/10/21 05/03/21 History oxybutynin chloride 5 mg PO HS 03/10/21 05/03/21 History timolol maleate 1 drp EACH EYE BID 03/10/21 05/03/21 History dexamethasone See Rx Instructions .ROUTE .COMPLEX 05/02/21 05/03/21 History lenalidomide [Revlimid] 25 mg PO DAILY 05/02/21 05/03/21 History morphine 15 mg PO Q4H PRN 05/02/21 05/03/21 History travoprost [Travatan Z] 1 drp EACH EYE QPM 05/02/21 05/03/21 History methocarbamol 500 mg PO QID PRN 05/03/21 05/03/21 History Allergies Allergy/AdvReac Type Severity Reaction Status Date / Time bee venom protein (honey bee) Allergy Unknown Verified 05/03/21 01:53 [bees] Wasp Allergy Unknown Unknown Uncoded 05/03/21 01:53 Results - Labs CBC & Chem 7: 05/03/21 10:36 05/03/21 04:38 Labs: Short CBC 05/02/21 05/02/21 05/03/21 Range/Units 17:49 23:24 04:38 WBC 8.2 7.5 (4.5-10.0) K/mm3 Hgb 7.4 L D 7.2 L 7.3 L (14.0-18.0) g/dL Hct 22.3 L 21.8 L 22.7 L (42.0-52.0) % Plt Count 124 L 120 L (150-375) k/mm3 05/03/21 Range/Units
[2021-05-03] MEDS: LATANOPROST 0.005% OP SOLN 2.5 ML BTL 1 DROP EACH EYE (16:20)
[2021-05-03] MEDS: ASPIRIN 81 MG CHEWABLE TABLET PO (16:20)
[2021-05-03] MEDS: AMIODARONE 360 MG/D5W 200 ML 360 MG/200 ML BAG 16.67 MG IV CONT (16:20)
[2021-05-03 19:05] LABS: Hematocrit 22.5 % (42.0-52.0); Hemoglobin 7.4 g/dL (14.0-18.0)
[2021-05-03 19:31] LABS: SARS-CoV-2 RNA PCR Negative (Negative)
[2021-05-03] MEDS: ATORVASTATIN 40 MG TABLET PO (20:34)
[2021-05-03] MEDS: FINASTERIDE 5 MG TABLET PO (20:34)
[2021-05-03] MEDS: APIXABAN 5 MG TABLET PO (20:34)
[2021-05-03] MEDS: OXYBUTYNIN CHLORIDE 5 MG TABLET PO (20:34)
[2021-05-03 21:42] LABS: Sodium Urine Random < 5 meq/L
[2021-05-04] VITALS (17 sets, daily range): BP systolic 106–136; BP diastolic 50–76; PULSE 58–111; RESP 10–20; TEMP 35.9–37.1; O2SAT 95–100
--- NOTE | 2021-05-04 | ECHO_ITS ---
Patient Info Name: Marvin Henderson Age: 85 years : 1935 Gender: Male Ht: 63 in Wt: 157 lbs BSA: 1.80 m2 HR: 59 bpm BP: 112 / 61 mmHg Heart Rhythm: Sinus Rhythm Exam Date: 05/04/2021 10:50 AM Exam Location: [facility] Patient Status: Inpatient Admit Date: 05/03/2021 Staff Ordering Physician: Abril Hermosillo NP Writer Producer: Jose Mejia, ANA, RT Attending Provider: Carolyne Maxwell MD Referring Physician: Jaimee BAEZ; Exam Type: CA echo doppler color flow Study Info Indications I50.9 - Heart failure, unspecified Complete two-dimensional, color flow and Doppler transthoracic echocardiogram is performed. Strain analysis performed. Summary 1. Complete two-dimensional, color flow and Doppler transthoracic echocardiogram is performed. 2. Normal left ventricular size and thickness. There was moderate global hypokinesis present. Visually the ejection fraction appeared to be 35-40% (although it was calculated to be 47%). The global longitudinal strain was moderately dimmed creased at -13% consistent with systolic dysfunction. Diastolic function appeared normal. There was flattening of the interventricular septum during systole and diastole consistent with right ventricular pressure and volume overload. 3. Right ventricular chamber dimension is moderately enlarged with moderate global hypokinesis.. 4. Left atrial chamber dimension is severely enlarged. 5. Right atrial chamber dimension is moderately enlarged. 6. There is mild aortic valve regurgitation. 7. There is moderate mitral valve regurgitation. 8. There is moderate to severe tricuspid valve regurgitation. 9. Moderate pulmonary hypertension, estimated pulmonary arterial systolic pressure is 59 mmHg. 10. Dilated inferior vena cava with <50% collapse upon inspiration consistent with significantly elevated right atrial pressure, 15 mmHg. 11. Normal sinus rhythm. Left Ventricle Left ventricular chamber dimension is normal. Left ventricular systolic function is normal, estimated at 35-40%. There is no increased left ventricular wall thickness. Left ventricular septal wall motion is normal. The left ventricular diastolic function is normal. Global longitudinal strain is moderately elevated at 13 %. Right Ventricle Right ventricular chamber dimension is moderately enlarged with moderate global hypokinesis.. Right ventricular systolic function is reduced. Left Atria Left atrial chamber dimension is severely enlarged. Right Atria Right atrial chamber dimension is moderately enlarged. Aortic Valve The aortic valve is trileaflet. There is no aortic valve sclerosis. There is no aortic valve stenosis. There is mild aortic valve regurgitation. Pulmonic Valve The pulmonic valve is normal. There is no pulmonic valve stenosis. There is trace pulmonic regurgitation. Mitral Valve The mitral valve has normal leaflets. There is no mitral valve stenosis. There is moderate mitral valve regurgitation. Tricuspid Valve The tricuspid valve leaflets are normal. There is no significant tricuspid valve stenosis. There is moderate to severe tricuspid valve regurgitation. Moderate pulmonary hypertension, estimated pulmonary arterial systolic pressure is 59 mmHg. Pericardium/Pleural The pericardium appears normal. There is no pericardial effusion. Inferior Vena Cava Dilated inferior vena cava with <50% collapse upon inspiration consistent with significantly elevated right atrial pressure
[2021-05-04 00:03] LABS: Creatinine Urine 147.9 mg/dL
[2021-05-04 00:34] LABS: Eosinophil Urine None Seen % (None Seen)
[2021-05-04 04:42] LABS: Basophils Percent Auto 0.1 % (0.2-1.2); Eosinophils Percent Auto 0.4 % (0-4.4); Hematocrit 22.8 % (42.0-52.0); Hemoglobin 7.5 g/dL (14.0-18.0); Immature Granulocyte Absolute 0.05 K/mm3 (0.00-0.031); Immature Granulocyte Percent A 0.6 % (0-0.5); Immature Platelet Fraction Pct 5.2 % (0.9-11.2); Lymphocytes Absolute Auto 0.91 K/mm3 (0.9-3.2); Lymphocytes Percent Auto 11.1 % (18.3-44.2); Mean Corpuscular HGB Conc 32.9 g/dl (32-36); Mean Corpuscular Hemoglobin 34.1 pg (26-34); Mean Corpuscular Volume 103.6 fl (80-100); Mean Platelet Volume 10.8 fl (7.4-10.4); Monocytes Percent Auto 11.8 % (2.6-8.5); Neutrophils Absolute Auto 6.3 K/mm3 (1.3-6.7); Platelet Count Result 121 k/mm3 (150-375); Red Cell Distribution Width 16.1 % (11.5-14.5); White Blood Count 8.2 K/mm3 (4.5-10.0)
[2021-05-04 04:58] LABS: Alanine Aminotransferase 68 U/L (4-50); Albumin Level 2.9 g/dL (3.5-5.1); Alkaline Phosphatase 91 U/L (38-126); Anion Gap 7 mmol/L (8-16); Aspartate Amino Transferase 85 U/L (17-59); Bilirubin,Total 0.6 mg/dL (0.2-1.3); Blood Urea Nitrogen 21 mg/dL (9-20); CRP 8.9 mg/dL (<1.0); Carbon Dioxide 24 mmol/L (22-30); Chloride 93 mmol/L (98-107); Estimated CRCL calculation 47 ml/min; Estimated Glomerular Filt Rate > 60; Glucose 114 mg/dL (65-110); Lactate Dehydrogenase 696 U/L (313-618); Magnesium 2.5 mg/dL (1.6-2.3); Phosphorus 1.3 mg/dL (2.5-4.5); Potassium 4.4 mmol/L (3.4-5.0); Sodium 124 mmol/L (137-145)
[2021-05-04 05:07] LABS: Iron 25 ug/dL (49-181)
[2021-05-04] MEDS: AMIODARONE 360 MG/D5W 200 ML 360 MG/200 ML BAG 16.67 MG IV CONT (05:07)
[2021-05-04 05:16] LABS: Percent Iron Saturation 16 % (20-50)
[2021-05-04 06:02] LABS: Folic Acid 7.5 ng/mL (2.76->20)
--- NOTE | 2021-05-04 08:00 | ECG_ITS ---
Measurements Intervals [place] Rate: 67 P: 41 [place]: 158 QRS: 16 QRSD: 87 T: 73 QT: 465 QTc: 491 Interpretive Statements SINUS RHYTHM POSSIBLE LEFT ATRIAL ENLARGEMENT NONSPECIFIC ST & T-WAVE ABNORMALITY- ANTEROLAT/HIGH LAT LEADS PROLONGED QT INTERVAL BASELINE WANDER- I, II ABNORMAL ECG Electronically Signed On 05-04-2021 11:00:46 ROLL UP HELPER by Nam Rosenberg D.O.
[2021-05-04] MEDS: ASPIRIN 81 MG CHEWABLE TABLET PO (09:08)
[2021-05-04] MEDS: APIXABAN 5 MG TABLET PO ×2 (09:08→20:18)
[2021-05-04] MEDS: POTASSIUM/PHOSPHORUS/SODIUM 1.5 GM PACKET 1 PACKET PO ×2 (09:09→19:28)
[2021-05-04] MEDS: TIMOLOL MALEATE 0.5% OP SOLN 5 ML BOTTLE 1 DROP EACH EYE ×2 (09:10→19:29)
--- NOTE | 2021-05-04 09:55 | PCSTNOTE ---
Please refer to the Bedside Swallow Evaluation in the EMR. Please note, silent aspiration cannot be ruled out at bedside. Please note MBS is being recommended to further evaluate swallow process.
[2021-05-04] MEDS: MORPHINE SULFATE (*CRX) 15 MG TAB IR PO ×2 (11:50→21:18)
--- NOTE | 2021-05-04 13:34 | PM.IMPN ---
Progress Note: A&P Assessment and Plan (1) Acute respiratory failure: Code(s): J96.00 - Acute respiratory failure, unspecified whether with hypoxia or hypercapnia Status: Acute Assessment and Plan: Patient presented with hypoxia requiring up to 15 L. ABG 7.40/24/70 on 15 HFNC. His COVID test was negative. Doubt PE due to the fact that he was on Eliquis on admission. LE dopplers were negative for DVT. Speech therapy evaluation showing patient can swallow safely. Probably due to bacterial PNA. Echo pending. CXR showing diffuse disease R>L. [place] BNP was 23778. Blood pressure is soft at times so Lasix held. Able to wean O2 to 3L now. Wean o2 as tolerated. (2) Non-STEMI (non-ST elevated myocardial infarction): Code(s): I21.4 - Non-ST elevation (NSTEMI) myocardial infarction Status: Acute Assessment and Plan: Patient's troponins was 4.5 on admission that is trending down. EKG on admission showed no acute ST or T-wave changes. When patient was in atrial fibrillation with a heart rate of 145, he had diffuse ST depression mostly in the anterior lateral leads. The patient did have a syncopal episode. He may have had a brief hypotensive event related to dehydration and his medications. The patient also recently was started on Revlimid with one of the severe reactions being myocardial infarction. Cardiology has been consulted. Echo is pending. Continue Lipitor and ASA. Appreciate cardiology input. (3) Pneumonia: Code(s): J18.9 - Pneumonia, unspecified organism Status: Acute Assessment and Plan: The patient has been wheezing and is hypoxic. He is not on oxygen at home. COVID test was negative. Blood cultures no growth to date. Chest x-ray shows bibasilar airspace disease compatible with pneumonia with repeat x-ray today reviewed showing R>L airspace disease. WBC remains normal but CRP worse at 8.9. No fevers. Continue Rocephin and azithromycin. QTc 491 with normal HR - monitor closely. Continue tele. Repeat EKG. Continue to monitor. Check sputum Discussed with cardiology who recommended changing Azithro out due to the QTc. Change to Doxycycline (4) Atrial fibrillation: Code(s): I48.91 - Unspecified atrial fibrillation Status: Chronic Assessment and Plan: Patient developed AFib with RVR. He was started on amiodarone drip. His Eliquis was resumed. TSH is normal. Consider PE but felt less likely since LE doppler negative for DVT and that he was on Eliquis and that the CXR is not clear. Remains on Amio drip. Appreciate cardiology input. (5) Acute kidney injury: Code(s): N17.9 - Acute kidney failure, unspecified Status: Acute Assessment and Plan: Patient has a normal baseline Cr. Cr 1.5 on admission felt related to dehydration. Cr has improved with IV fluids. IV fluids stopped and Cr remaining normal. Hold any nephrotoxic medication. Continue to monitor. (6) Syncopal episodes: Code(s): R55 - Syncope and collapse Status: Acute Assessment and Plan: Patient became weak but able to help him into the house. When he sat, he was briefly unresponsive. Consider orthostatic HoTN related to dehydration and/or medications. Carotid US showing <50% stenosis bilaterally. Echo ordered. Continue monitoring. (7) Hyponatremia: Code(s): E87.1 - Hypo-osmolality and hyponatremia Status: Acute Assessment and Plan: Na normal prior to admission. Na 122 on admission. Leandro<5, UCx 148 and FENa 0.03%. Sodium still low at 124. Suspect dehydration from poor oral intake and continued diuretic use. Add NS x 500mL. Phos is also low so will replace. Refeeding syndrome? (8) Anemia: Code(s): D64.9 - Anemia, unspecified Status: Chronic Assessment and Plan: Hgb 12.6 in February but 7.4 on admission. Hgb has been stable since admission. Anemia felt related to the MM and from treatment of the same. Stool for occult bl
--- NOTE | 2021-05-04 13:42 | PM.PNCARD ---
Progress Note: A&P Assessment and Plan (1) Atrial fibrillation: Code(s): I48.91 - Unspecified atrial fibrillation Status: Chronic Assessment and Plan: Patient with a history of paroxysmal AFib admitted with AFib RVR, now mostly control with IV amiodarone. Continue Eliquis; hemoglobin stable. Change amiodarone from IV to 400 mg p.o. b.i.d. Start low-dose beta-betty (2) Non-STEMI (non-ST elevated myocardial infarction): Code(s): I21.4 - Non-ST elevation (NSTEMI) myocardial infarction Status: Acute Assessment and Plan: No history of coronary disease, but patient had significant lateral ST depression when AFib RVR, and an elevation of troponin consistent with a non-STEMI. May have some undiagnosed underlying CAD aggravated by his hypoxia, tachycardia etc. Continue aspirin atorvastatin; may decide to discontinue aspirin on discharge if he continues with Eliquis to reduce bleeding risk. Start low-dose beta-betty. Advanced as blood pressure allows. (3) Pneumonia: Code(s): J18.9 - Pneumonia, unspecified organism Status: Acute Assessment and Plan: Admitted with pneumonia, COVID negative, some improvement of the left-sided infiltrate. O2 needs have improved. Treatment per hospitalist. (4) Medication monitoring encounter: Code(s): Z51.81 - Encounter for therapeutic drug level monitoring Status: Acute Assessment and Plan: Patient is taking both amiodarone and azithromycin which can prolong the QT interval. His QT interval is borderline prolonged. Check EKG again tomorrow. No ventricular arrhythmias seen Continue Telemetry (5) Anemia: Code(s): D64.9 - Anemia, unspecified Status: Chronic Assessment and Plan: Thought to be due to his multiple myeloma and treatment for this. H&H stable. Platelet count borderline low but stable. Tolerating aspirin plus Eliquis but we may consider stopping aspirin prior to discharge. Daily H&H Subjective Date/time seen: 05/04/21 13:42 Interval history: FU for PAF RVR, elevated trop/NSTEMI (peak trop 4.6). H/O PAF which has been asymptomatic and controlled with diltiazem and Eliquis for the last 3 years. Also has pneumonia with hypoxia (COVID neg), and admitted w/ syncope and dehydration with DHARA. H/O recurremt multiple myeloma, anemia and frailty. No known CAD. Last Lexiscan 2019 showed no ischemia. 05/03/2021: Started on amiodarone for AFib RVR Date of service 05/04/2021: Patient does have episodes of AFib with a mildly elevated heart rate but generally is in sinus rhythm today. Currently down to 3L O2. Was out of bed some today. Review of Systems Constitutional: Constitutional: Reports weakness Comments: Walked to BR w/ help ENT: Denies epistaxis Cardiovascular: Cardiovascular: Denies chest pain, Denies pedal edema, Denies leg edema and Denies palpitations Respiratory: Respiratory: Denies cough and Reports dyspnea Gastrointestinal: Gastrointestinal: Denies abdominal pain and Denies hematochezia Genitourinary: Genitourinary: Denies hematuria Musculoskeletal: Musculoskeletal: Reports back pain Integumentary/Breasts: Skin/Breast: Denies rash Neurologic: Denies confusion Psychiatric: Psychiatric: Reports no additional psychiatric complaints Exam Narrative: Older male, remember me, NAD but mildy tachypnec, at bedside Const: General: comfortable and no acute distress Eyes: EOM: EOMs intact bilaterally Neck: Neck: supple Resp: Effort & Inspection: normal respiratory effort (Mild tachypnea) Auscultation: no rales and diminished lung sounds (bases) Cardio: Rate: regular rate Rhythm: regular rhythm Heart sounds: no murmurs GI: Inspection: non-distended GI Palp: Yes Soft to palpation and No Tenderness to palpation present (GI) Urinary Catheter: Urinary Catheter: patent and draining and urine clear Skin: General skin exam: normal color and no
[2021-05-04] MEDS: SODIUM CHLORIDE 0.9% IV 1,000 ML 100 ML IV CONT (15:58)
[2021-05-04] MEDS: AMIODARONE HCL 200 MG TABLET 400 MG PO (19:28)
[2021-05-04] MEDS: METOPROLOL TARTRATE 12.5 MG TABLET PO (20:17)
[2021-05-04] MEDS: FINASTERIDE 5 MG TABLET PO (20:17)
[2021-05-04] MEDS: LATANOPROST 0.005% OP SOLN 2.5 ML BTL 1 DROP EACH EYE (20:17)
[2021-05-04] MEDS: OXYBUTYNIN CHLORIDE 5 MG TABLET PO (20:18)
[2021-05-04] MEDS: ATORVASTATIN 40 MG TABLET PO (20:18)
[2021-05-04] MEDS: DOXYCYCLINE HYCLATE 100 MG TABLET PO (20:18)
[2021-05-05] VITALS (24 sets, daily range): BP systolic 101–131; BP diastolic 58–74; PULSE 53–114; RESP 14–20; TEMP 36.2–36.7; O2SAT 90–100
[2021-05-05 05:10] LABS: Eosinophils Percent Auto 0.5 % (0-4.4); Hematocrit 21.3 % (42.0-52.0); Immature Granulocyte Absolute 0.06 K/mm3 (0.00-0.031); Immature Granulocyte Percent A 0.8 % (0-0.5); Immature Platelet Fraction Pct 4.5 % (0.9-11.2); Lymphocytes Absolute Auto 0.56 K/mm3 (0.9-3.2); Mean Corpuscular HGB Conc 32.9 g/dl (32-36); Mean Corpuscular Hemoglobin 33.5 pg (26-34); Mean Corpuscular Volume 101.9 fl (80-100); Mean Platelet Volume 10.7 fl (7.4-10.4); Monocytes Absolute Auto 1.2 K/mm3 (0.1-0.6); Monocytes Percent Auto 15.3 % (2.6-8.5); Neutrophils Absolute Auto 6.1 K/mm3 (1.3-6.7); Neutrophils Percent Auto 76.4 % (45.5-73.1); Platelet Count Result 124 k/mm3 (150-375); Red Blood Count 2.09 M/mm3 (4.6-6.20); Red Cell Distribution Width 16.1 % (11.5-14.5)
[2021-05-05 05:29] LABS: Albumin Level 2.7 g/dL (3.5-5.1); Anion Gap 11 mmol/L (8-16); Blood Urea Nitrogen 20 mg/dL (9-20); Calcium 6.8 mg/dL (8.4-10.2); Carbon Dioxide 21 mmol/L (22-30); Chloride 97 mmol/L (98-107); Estimated CRCL calculation 49 ml/min; Estimated Glomerular Filt Rate > 60; Glucose 102 mg/dL (65-110); Phosphorus 1.4 mg/dL (2.5-4.5); Potassium 4.2 mmol/L (3.4-5.0); Sodium 129 mmol/L (137-145)
[2021-05-05] MEDS: FUROSEMIDE INJ 40 MG/4 ML VIAL 20 MG IV PUSH ×3 (06:48→20:50)
--- NOTE | 2021-05-05 08:00 | ECG_ITS ---
Measurements Intervals [place] Rate: 64 P: 21 [place]: 193 QRS: 4 QRSD: 92 T: 62 QT: 469 QTc: 486 Interpretive Statements SINUS RHYTHM POSSIBLE LEFT ATRIAL ENLARGEMENT INCOMPLETE RIGHT BUNDLE BRANCH BLOCK BORDERLINE ST-T WAVE ABNORMALITY- LAT/HIGH LAT LEADS BASELINE WANDER- III, V4, V6 BORDERLINE ECG Electronically Signed On 05-05-2021 10:43:00 SOFTWARE LICENSING ANALYST by Nam Rosenberg D.O.
[2021-05-05] MEDS: AMIODARONE HCL 200 MG TABLET 400 MG PO ×2 (08:31→16:25)
[2021-05-05] MEDS: POTASSIUM/PHOSPHORUS/SODIUM 1.5 GM PACKET 1 PACKET PO ×2 (08:31→16:26)
[2021-05-05] MEDS: TIMOLOL MALEATE 0.5% OP SOLN 5 ML BOTTLE 1 DROP EACH EYE ×2 (08:31→16:27)
[2021-05-05] MEDS: ASPIRIN 81 MG CHEWABLE TABLET PO (08:32)
[2021-05-05] MEDS: DEXAMETHASONE 4 MG TABLET 40 MG BY MOUTH (08:32)
[2021-05-05] MEDS: DOXYCYCLINE HYCLATE 100 MG TABLET PO ×2 (08:32→20:49)
[2021-05-05] MEDS: APIXABAN 5 MG TABLET PO ×2 (08:32→20:49)
[2021-05-05] MEDS: METOPROLOL TARTRATE 12.5 MG TABLET PO ×2 (08:34→20:49)
--- NOTE | 2021-05-05 11:54 | PM.IMPN ---
Progress Note: A&P Assessment and Plan (1) Acute respiratory failure: Code(s): J96.00 - Acute respiratory failure, unspecified whether with hypoxia or hypercapnia Status: Acute Assessment and Plan: Patient presented with hypoxia requiring up to 15 L. ABG 7.40/24/70 on 15 HFNC. His COVID test was negative. Doubt PE due to the fact that he was on Eliquis on admission. LE dopplers were negative for DVT. Speech therapy evaluation showing patient can swallow safely. CXR showing diffuse disease R>L. [place] BNP was [address]. Probably due to bacterial PNA but can not rule out edema. Echo as mentioned below. Wean O2 as tolerated. (2) Non-STEMI (non-ST elevated myocardial infarction): Code(s): I21.4 - Non-ST elevation (NSTEMI) myocardial infarction Status: Acute Assessment and Plan: Patient's troponins was 4.5 on admission that is trending down. EKG on admission showed no acute ST or T-wave changes. When patient was in atrial fibrillation with a heart rate of 145, he had diffuse ST depression mostly in the anterior lateral leads. The patient did have a syncopal episode. He may have had a brief hypotensive event related to dehydration and his medications. The patient also recently was started on Revlimid with one of the severe reactions being myocardial infarction. Echo showing EF 35-40% with nml diastolic function, moderately enlarge RV with global hypokinesis, moderate MR, mod-severe TR, moderate pHTN and volume overload. Continue Lipitor and ASA. Lasix IV for 3 doses to try to wean off O2. Appreciate cardiology input. (3) Pneumonia: Code(s): J18.9 - Pneumonia, unspecified organism Status: Acute Assessment and Plan: The patient has been wheezing and is hypoxic. He is not on oxygen at home. COVID test was negative. Blood cultures no growth to date. Chest x-ray shows bibasilar airspace disease compatible with pneumonia with repeat x-ray today reviewed showing R>L airspace disease. WBC remains normal but CRP worse at 8.9 yesterday. No fevers. Continue Rocephin and doxycycline. Continue tele. Continue to monitor. (4) Atrial fibrillation: Code(s): I48.91 - Unspecified atrial fibrillation Status: Chronic Assessment and Plan: Patient developed AFib with RVR. He was started on amiodarone drip. His Eliquis was resumed. TSH is normal. Consider PE but felt less likely since LE doppler negative for DVT and that he was on Eliquis and that the CXR was not clear. Changed to oral Amiodarone. Appreciate cardiology input. (5) Acute kidney injury: Code(s): N17.9 - Acute kidney failure, unspecified Status: Acute Assessment and Plan: Patient has a normal baseline Cr. Cr 1.5 on admission felt related to dehydration. Cr has improved with IV fluids. IV fluids stopped and Cr remaining normal. Continue to monitor. (6) Syncopal episodes: Code(s): R55 - Syncope and collapse Status: Acute Assessment and Plan: Patient became weak but able to help him into the house. When he sat, he was briefly unresponsive. Consider orthostatic HoTN related to dehydration and/or medications. Carotid US showing <50% stenosis bilaterally. Echo as above. Continue monitoring. (7) Hyponatremia: Code(s): E87.1 - Hypo-osmolality and hyponatremia Status: Acute Assessment and Plan: Na normal prior to admission. Na 122 on admission. Leandro<5, UCx 148 and FENa 0.03%. Sodium better at 129. Phos is also low and this is being replaced. (8) Anemia: Code(s): D64.9 - Anemia, unspecified Status: Chronic Assessment and Plan: Hgb 12.6 in February but 7.4 on admission. Hgb has been stable since admission. Anemia felt related to the MM and from treatment of the same. Stool for occult blood has been ordered. Iron 25, TIBC 156 with 16% sat. Ferritin 678, B12 387 and Folate 7.5. Hgb stable but low at 7.0 now. Will transfuse 1U PRBC. Continue to mon
--- NOTE | 2021-05-05 12:54 | PCOTNOTE ---
Attempted to work with pt., pt. BP presenting 98/60 supine with HOB raised. Pt. not seen due to decreased BP, pending blood transfusion.
[2021-05-05] MEDS: SODIUM CHLORIDE 0.9% IV 250 ML 30 ML IV CONT (14:00)
--- NOTE | 2021-05-05 15:27 | P.PNONC_ITS ---
Progress Note: A/P (1) Anemia Qualifiers: Anemia type: other cause Other causes of anemia: chronic disease, neoplastic Qualified Code(s): D63.0 - Anemia in neoplastic disease Code(s): D64.9 - Anemia, unspecified Status: Acute - Time Spent With Patient Total time spent is greater than 50% in coordination of care (as documented) at patient's floor/unit and/or counseling patient: 15 - 25 minutes Subjective Interval history: CT of jaw is noted patient however is minimally symptomatic. I think focal radiation is warranted. As patient is awaiting radiation to his right humerus I would await discharge and he can receive radiation to both areas Review of Systems - Neurologic Reports system reviewed and no additional complaints, except as documented, Reports hearing normal, Reports syncope, Reports weakness, Denies confusion, Denies headache(s) Exam Vital signs: Temp Pulse Resp BP Pulse Ox 36.5 C 65 16 102/61 90 05/05/21 14:52 05/05/21 14:52 05/05/21 14:52 05/05/21 14:52 05/05/21 14:52 PN: Objective Data - Labs CBC & Chem 7: 05/06/21 04:45 05/06/21 04:45 Labs: Laboratory Results - last 24 hr 05/05/21 05/05/21 05/05/21 04:52 04:52 12:38 WBC 8.0 RBC 2.09 L Hgb 7.0 L Hct 21.3 L MCV 101.9 H MCH 33.5 MCHC 32.9 RDW 16.1 H Plt Count 124 L MPV 10.7 H Immature Gran % (Auto) 0.8 H Neut % (Auto) 76.4 H Lymph % (Auto) 7.0 L [place] % (Auto) 15.3 H Eos % (Auto) 0.5 Baso % (Auto) 0.0 L Lymph # (Auto) 0.56 L [place] # (Auto) 1.2 H Eos # (Auto) 0.0 Baso # (Auto) 0.0 Abs Immat Gran (auto) 0.06 H Absolute Neuts (auto) 6.1 Absolute Nucleated RBC 0.0 Nucleated RBC % 0.0 % Immature Plt Fraction 4.5 Sodium 129 L Potassium 4.2 Chloride 97 L Carbon Dioxide 21 L Anion Gap 11 BUN 20 Creatinine 0.90 Estim Creat Clear Calc 49 Estimated GFR > 60 Glucose 102 Calcium 6.8 L Phosphorus 1.4 L Albumin 2.7 L Blood Type B Negative Antibody Screen Negative Crossmatch See Detail
[2021-05-05] MEDS: TUBING, BLOOD PLUM PUMP TUBING 1 EACH XX (16:25)
[2021-05-05] MEDS: LATANOPROST 0.005% OP SOLN 2.5 ML BTL 1 DROP EACH EYE (16:27)
--- NOTE | 2021-05-05 18:30 | PM.PNCARD ---
Progress Note: A&P Assessment and Plan (1) Atrial fibrillation: Code(s): I48.91 - Unspecified atrial fibrillation Status: Chronic Assessment and Plan: Patient with a history of paroxysmal AFib admitted with AFib RVR, resulting in ischemia. Remains paroxysmal; Heart rate improved on amiodarone. Continue Eliquis; hemoglobin stable. Change amiodarone from 400 mg p.o. b.i.d. to 400 mg daily tmr Cont metop 12.5 mg BID (2) Non-STEMI (non-ST elevated myocardial infarction): Code(s): I21.4 - Non-ST elevation (NSTEMI) myocardial infarction Status: Acute Assessment and Plan: No history of coronary disease, but patient had significant lateral ST depression when AFib RVR, and an elevation of troponin consistent with a non-STEMI. May have some undiagnosed underlying CAD aggravated by his hypoxia, tachycardia etc. Continue aspirin and atorvastatin; may decide to discontinue aspirin on discharge if he continues with Eliquis to reduce bleeding risk. Started low-dose beta-betty. Advanced as blood pressure and HR allows. (3) Pneumonia: Code(s): J18.9 - Pneumonia, unspecified organism Status: Acute Assessment and Plan: Admitted with pneumonia, COVID negative, some improvement of the left-sided infiltrate. O2 needs have improved. Treatment per hospitalist. Currently being diuresed as chest x-ray findings could not distinguish between CHF and pneumonia. Does not look very volume overloaded, so doubt he will need much Lasix. (4) Medication monitoring encounter: Code(s): Z51.81 - Encounter for therapeutic drug level monitoring Status: Acute Assessment and Plan: Patient is taking both amiodarone and azithromycin which can prolong the QT interval. His QT interval is borderline prolonged. EKG today shows acceptable QT interval. No ventricular arrhythmias seen Continue Telemetry (5) Anemia: Code(s): D64.9 - Anemia, unspecified Status: Chronic Assessment and Plan: Thought to be due to his multiple myeloma and treatment for this. H&H stable. Platelet count borderline low but stable. Tolerating aspirin plus Eliquis but we may consider stopping aspirin prior to discharge. Daily H&H Subjective Date/time seen: 05/05/21 18:30 Interval history: FU for PAF RVR, elevated trop/NSTEMI (peak trop 4.6). H/O PAF which has been asymptomatic and controlled with diltiazem and Eliquis for the last 3 years. Also has pneumonia with hypoxia (COVID neg), and admitted w/ syncope and dehydration with DHARA. H/O recurremt multiple myeloma, anemia and frailty. No known CAD. Last Lexiscan 2018 showed no ischemia. 05/03/2021: Started on IV amiodarone for AFib RVR Date of service 05/04/2021: Patient does have episodes of AFib with a mildly elevated heart rate but generally is in sinus rhythm today. Currently down to 3L O2. Amiodareon changed to 400 mg BID Date of service 05/03: Patient was back in atrial fibrillation throughout most of the night, heart rate 100-110, well tolerated. Converted to sinus rhythm today. Heart rate now 54-66. Feels ?so-so. ? Had a unit of blood today. Started on furosemide IV this morning. Review of Systems Constitutional: Constitutional: Reports weakness ENT: Denies epistaxis Cardiovascular: Cardiovascular: Denies chest pain, Denies pedal edema, Denies leg edema, Denies palpitations and Reports dyspnea Respiratory: Respiratory: Denies cough and Reports dyspnea Gastrointestinal: Gastrointestinal: Denies abdominal pain and Denies hematochezia Genitourinary: Genitourinary: Denies hematuria Musculoskeletal: Musculoskeletal: Reports back pain Integumentary/Breasts: Skin/Breast: Denies rash Neurologic: Denies confusion and Reports weakness Psychiatric: Psychiatric: Reports no additional psychiatric complaints and Denies confusion Endocrine: Endocrine: Denies palpitations Exam Narrative: Older male
[2021-05-05] MEDS: HYDROcodone/acetaminophen (*CRX) 5-325 MG TABLET 1 TAB PO (20:48)
[2021-05-05] MEDS: OXYBUTYNIN CHLORIDE 5 MG TABLET PO (20:49)
[2021-05-05] MEDS: FINASTERIDE 5 MG TABLET PO (20:49)
[2021-05-05] MEDS: ATORVASTATIN 40 MG TABLET PO (20:49)
[2021-05-06] VITALS (16 sets, daily range): BP systolic 112–129; BP diastolic 57–75; PULSE 45–54; RESP 16–20; TEMP 35.6–36.5; O2SAT 94–100
[2021-05-06 05:46] LABS: Albumin Level 2.9 g/dL (3.5-5.1); Anion Gap 12 mmol/L (8-16); Blood Urea Nitrogen 28 mg/dL (9-20); Calcium 6.7 mg/dL (8.4-10.2); Carbon Dioxide 23 mmol/L (22-30); Chloride 96 mmol/L (98-107); Estimated CRCL calculation 45 ml/min; Estimated Glomerular Filt Rate > 60; Glucose 145 mg/dL (65-110); Magnesium 2.5 mg/dL (1.6-2.3); Phosphorus 2.6 mg/dL (2.5-4.5); Potassium 4.2 mmol/L (3.4-5.0); Sodium 131 mmol/L (137-145)
[2021-05-06 05:49] LABS: Hematocrit 28.7 % (42.0-52.0); Hemoglobin 9.2 g/dL (14.0-18.0); Mean Corpuscular HGB Conc 32.1 g/dl (32-36); Mean Corpuscular Volume 102.9 fl (80-100); Mean Platelet Volume 10.7 fl (7.4-10.4); Platelet Count Result 150 k/mm3 (150-375); Red Blood Count 2.79 M/mm3 (4.6-6.20); Red Cell Distribution Width 17.6 % (11.5-14.5); White Blood Count 11.1 K/mm3 (4.5-10.0)
[2021-05-06] MEDS: DOXYCYCLINE HYCLATE 100 MG TABLET PO (08:59)
[2021-05-06] MEDS: ASPIRIN 81 MG CHEWABLE TABLET PO (08:59)
[2021-05-06] MEDS: APIXABAN 5 MG TABLET PO (08:59)
[2021-05-06] MEDS: TIMOLOL MALEATE 0.5% OP SOLN 5 ML BOTTLE 1 DROP EACH EYE (08:59)
--- NOTE | 2021-05-06 10:06 | PM.PNCARD ---
Progress Note: A&P Assessment and Plan (1) Atrial fibrillation: Code(s): I48.91 - Unspecified atrial fibrillation Status: Chronic Assessment and Plan: Patient with a history of paroxysmal AFib admitted with AFib RVR, resulting in ischemia. Remains paroxysmal; Heart rate improved on amiodarone. Continue Eliquis; hemoglobin stable. Change amiodarone from 400 mg p.o. daily to 200 mg daily. We will discontinue metoprolol 12.5 mg b.i.d.. He is bradycardic this morning at 50 beats per minute. Okay to discharge from heart standpoint. (2) Non-STEMI (non-ST elevated myocardial infarction): Code(s): I21.4 - Non-ST elevation (NSTEMI) myocardial infarction Status: Acute Assessment and Plan: No history of coronary disease, but patient had significant lateral ST depression when AFib RVR, and an elevation of troponin consistent with a non-STEMI. May have some undiagnosed underlying CAD aggravated by his hypoxia, tachycardia etc. Continue aspirin and atorvastatin; (3) Pneumonia: Code(s): J18.9 - Pneumonia, unspecified organism Status: Acute Assessment and Plan: Admitted with pneumonia, COVID negative, some improvement of the left-sided infiltrate. O2 needs have improved. Treatment per hospitalist. Currently being diuresed as chest x-ray findings could not distinguish between CHF and pneumonia. Does not look very volume overloaded, so doubt he will need much Lasix. (4) Medication monitoring encounter: Code(s): Z51.81 - Encounter for therapeutic drug level monitoring Status: Acute Assessment and Plan: Patient is taking both amiodarone and azithromycin which can prolong the QT interval. His QT interval is borderline prolonged. EKG today shows acceptable QT interval. No ventricular arrhythmias seen Continue Telemetry (5) Anemia: Code(s): D64.9 - Anemia, unspecified Status: Chronic Assessment and Plan: Thought to be due to his multiple myeloma and treatment for this. H&H stable. Platelet count borderline low but stable. Tolerating aspirin plus Eliquis but we may consider stopping aspirin prior to discharge. Daily H&H Subjective Date/time seen: 05/06/21 10:06 resting comfortably in bed. No active complaints. Sinus bradycardia at 50 beats per minute. Interval history: Documentation of this patient encounter should include: Reason for the encounter Relevant history CT of jaw is noted patient however is minimally symptomatic. I think focal radiation is warranted. As patient is awaiting radiation to his right humerus I would await discharge and he can receive radiation to both areas Review of Systems Constitutional: Constitutional: Reports weakness Eyes: Eyes: Reports no additional eye complaints ENT: Reports system reviewed and no additional complaints, except as documented and Denies epistaxis Cardiovascular: Cardiovascular: Reports as per HPI, Denies chest pain, Denies pedal edema, Denies leg edema, Denies palpitations and Reports dyspnea Respiratory: Respiratory: Reports as per HPI, Denies cough and Reports dyspnea Gastrointestinal: Gastrointestinal: Reports no additional gastrointestinal complaints, Denies abdominal pain and Denies hematochezia Genitourinary: Genitourinary: Denies hematuria Musculoskeletal: Musculoskeletal: Reports as per HPI and Reports back pain Integumentary/Breasts: Skin/Breast: Reports as per HPI and Denies rash Neurologic: Reports as per HPI, Denies confusion and Reports weakness Psychiatric: Psychiatric: Reports no additional psychiatric complaints and Denies confusion Endocrine: Endocrine: Reports no additional endocrine complaints and Denies palpitations Hematologic/Lymphatic: Hematologic/Lymphatic: Reports no additional hematologic/lymphatic complaints Allergic/Immunologic: Allergic/Immunologic: Reports no additional allergic/immunologic complaints Exam Narrative: Older
[2021-05-06] MEDS: AMIODARONE HCL 200 MG TABLET PO (11:00)
--- NOTE | 2021-05-06 15:27 | PCOTNOTE ---
On 05/06/21, the student, Tara Ma, provided care and completed [facility]. I have reviewed the student's documentation and agree with the findings.
--- NOTE | 2021-05-06 16:30 | PM.DS ---
DS: Admitting Diagnosis Discharge Date 05/06/21 Admitting Diagnosis Syncope, weakness. DS: Discharge Diagnosis Discharge Diagnosis (1) Acute respiratory failure: Code(s): J96.00 - Acute respiratory failure, unspecified whether with hypoxia or hypercapnia Status: Acute Assessment and Plan: Patient presented with hypoxia requiring up to 15 L. ABG 7.40/24/70 on 15 HFNC. His COVID test was negative. Doubt PE due to the fact that he was on Eliquis on admission. LE dopplers were negative for DVT. Speech therapy evaluation showing patient can swallow safely. CXR showing diffuse disease R>L. [place] [address]. Probably due to bacterial PNA. Echo as mentioned below. Treatment as below. Able to wean to room air. Patient worked with PT and OT. He was up walking around the nurses station at the time of discharge. (2) Non-STEMI (non-ST elevated myocardial infarction): Code(s): I21.4 - Non-ST elevation (NSTEMI) myocardial infarction Status: Acute Assessment and Plan: Patient's troponins was 4.5 on admission that is trending down. EKG on admission showed no acute ST or T-wave changes. When patient was in atrial fibrillation with a heart rate of 145, he had diffuse ST depression mostly in the anterior lateral leads. The patient did have a syncopal episode. He may have had a brief hypotensive event related to dehydration and his medications. The patient also recently was started on Revlimid with one of the severe reactions being myocardial infarction. Echo showing EF 35-40% with nml diastolic function, moderately enlarge RV with global hypokinesis, moderate MR, mod-severe TR, moderate pHTN and volume overload. Treated with Lipitor and ASA. Metoprolol held due to bradycardia. Appreciate cardiology input. (3) Pneumonia: Code(s): J18.9 - Pneumonia, unspecified organism Status: Acute Assessment and Plan: The patient was wheezing with hypoxic. He is not on oxygen at home. COVID test was negative. Blood cultures no growth to date. Chest x-ray shows bibasilar airspace disease concerning with pneumonia with repeat x-ray showing R>L airspace disease. WBC remained normal but CRP worse at 8.9. No fevers. He was treated with Rocephin and doxycycline. (4) Atrial fibrillation: Code(s): I48.91 - Unspecified atrial fibrillation Status: Chronic Assessment and Plan: Patient developed AFib with RVR. He was started on amiodarone drip. His Eliquis was resumed. TSH was normal. Consider PE but felt less likely since LE doppler negative for DVT and that he was on Eliquis and that the CXR was not clear. He was changed to oral Amiodarone. Appreciate cardiology input. (5) Acute kidney injury: Code(s): N17.9 - Acute kidney failure, unspecified Status: Acute Assessment and Plan: Patient has a normal baseline Cr. Cr 1.5 on admission felt related to dehydration. Cr has improved with IV fluids. IV fluids stopped and Cr remained normal. (6) Syncopal episodes: Code(s): R55 - Syncope and collapse Status: Acute Assessment and Plan: Patient became weak but able to help him into the house. When he sat, he was briefly unresponsive. Consider orthostatic HoTN related to dehydration and/or medications. Carotid US showing <50% stenosis bilaterally. Echo as above. (7) Hyponatremia: Code(s): E87.1 - Hypo-osmolality and hyponatremia Status: Acute Assessment and Plan: Na normal prior to admission. Na 122 on admission. Leandro<5, UCx 148 and FENa 0.03%. Sodium better at 131. Phos is also low and this was replaced. (8) Anemia: Code(s): D64.9 - Anemia, unspecified Status: Chronic Assessment and Plan: Hgb 12.6 in February but 7.4 on admission. Hgb has been low but stable since admission. Anemia felt related to the MM and from treatment of the same. Iron 25, TIBC 156 with 16% sat. Ferritin 678, B12 387 and Folate
== END 2021-05-06 18:06 | disposition home health service (06) | DRG 280 ==
LOC: ANHED 17:33 → ANHIMU 21:00
PROVIDERS: Internal Medicine; Internal Medicine Cardiovascular Disease; Nurse Practitioner; Admitting Provider Hospitalist; Emergency Provider Emergency Medicine; PCP Family Medicine; Visit Provider Internal Medicine
DX: I21.4 Non-ST elevation (NSTEMI) myocardial infarction (principal); J18.9 Pneumonia, unspecified organism; J96.01 Acute respiratory failure with hypoxia; J15.9 Unspecified bacterial pneumonia; N17.9 Acute kidney failure, unspecified; E87.1 Hypo-osmolality and hyponatremia; C90.00 Multiple myeloma not having achieved remission; I48.20 Chronic atrial fibrillation, unspecified; M84.421A Pathological fracture, right humerus, initial encounter for fracture; I25.10 Atherosclerotic heart disease of native coronary artery without angina pectoris; D63.0 Anemia in neoplastic disease; Z20.822 Contact with and (suspected) exposure to COVID-19; E86.0 Dehydration; I95.1 Orthostatic hypotension; N40.0 Benign prostatic hyperplasia without lower urinary tract symptoms; H40.9 Unspecified glaucoma; E78.5 Hyperlipidemia, unspecified; Z85.46 Personal history of malignant neoplasm of prostate; Z79.01 Long term (current) use of anticoagulants
CPT/HCPCS: 36415; 36430; 36600; 70450; 70486; 71045; 80053; 80069; 80299; 81001; 82570; 82607; 82728; 82746; 82805; 83540; 83550; 83605; 83615; 83735; 83880; 84100; 84300; 84443; 84484; 85014; 85018; 85025; 85027; 85055; 85999; 86140; 86850; 86900; 86901; 86920; 87040; 87086; 87426; 92610; 93005; 93306; 93880; 93970; 96361; 96365; 96367; 96375; 96376; 97110; 97116; 97161; 97165; 97530; 97535; 99285; A9270; C9803; G0378; J0282; J0456; J0696; J1940; J2270; J7030; J7050; J8540; P9016; U0003; U0005

== ENCOUNTER 2021-06-30 23:46 | Inpatient (IN) | payer MEDICARE, OTHER, SELFPAY ==
--- NOTE | ~2021-06-30 | CT_ITS ---
EXAMINATION: CT brain wo con INDICATION: Altered mental status COMPARISON: 05/02/2021 TECHNIQUE: Standard unenhanced head CT. The dose-length product (DLP) was 681.00 mGy-cm. The mA was a djusted according to patient size. Iterative reconstruction technique was employed. FINDINGS: There is no acute intraparenchymal hemorrhage. No evidence of mass lesion. No evidence of a cute infarction. There is mild periventricular and subcortical hypodensity probably related to small vessel ischemic disease. There is mild prominence of the sulci and ventricles related to cerebral atr ophy. Intracranial calcified cerebral atherosclerosis is noted. There are no extra-axial collections. There is no mass effect or midline shift. Changes in the globes are likely from ocular lens surgery. The visualized sinuses and mastoid air cells are well aerated. Again noted is an expansile and lytic lesion of the right mandibular condyle with associated pathologic fracture. IMPRESSION: 1. No acute intracranial abnormality. 2. Age related findings. 3. Lytic lesion and pathologic fracture of the right mandibular condyle, consistent with history of m ultiple myeloma. Reviewed, dictated and finalized at location A. TING DEPARTMENT SUPERVISOR IMPRESSION: 1. No acute intracranial abnormality. 2. Age related findings. 3. Lytic lesion and pathologic fracture of the right mandibular condyle, consis tent with history of multiple myeloma.
--- NOTE | ~2021-06-30 | XR_ITS ---
EXAMINATION: XR chest 1V portable DATE: 07/01/2021 00:21 INDICATION: Altered mental status TECHNIQUE: frontal view of the chest was obtained. COMPARISON: Chest radiograph dated 05/04/2021 FINDINGS: Resolution of prior airspace disease throughout the right lung and significant improvement in now mil d opacities in the left lower lung zone. No pleural effusion or pneumothorax. The cardiomediastinal s ilhouette is normal. Callus formation along a partially visualized proximal diaphyseal fracture of th e right humerus with internal fixation. IMPRESSION: 1. Mild opacities in the left lower lung zone which could represent atelectasis or pneumonia. Reviewed, dictated and finalized at location A. DING CONSTRUCTION INSPECTOR
--- NOTE | ~2021-06-30 | XR_ITS ---
EXAMINATION: XR chest 1V portable EXAM DATE: 07/01/2021 20:25 INDICATION: SOB TECHNIQUE: Portable AP frontal chest x-ray was obtained. Comparison is made to prior examination from 07/01/2021. FINDINGS: Significant interval progression in bilateral ill-defined airspace disease with relative sp aring of the upper lung zones, pneumonia or edema. No pneumothorax or sizable pleural effusion. There are mild bony degenerative changes. There is aortic arteriosclerosis. Mild cardiomegaly. IMPRESSION: Significant progression in now moderate amount of ill-defined bilateral pneumonia or abigail a. Reviewed, dictated and finalized at location G. ICAL RESEARCH ADMINISTRATOR IMPRESSION: Significant progression in now moderate amount of ill-defined bilat eral pneumonia or edema.
--- NOTE | ~2021-06-30 | XR_ITS ---
EXAMINATION: XR chest 1V portable DATE: 07/03/2021 09:15 INDICATION: Change in lung sounds TECHNIQUE: frontal view of the chest was obtained. COMPARISON: Chest radiograph dated 07/01/2021 FINDINGS: Airspace opacities in the bilateral mid and lower lung zones with interval increase in the right midl hiral zone. No pleural effusion or pneumothorax. The cardiomediastinal silhouette is normal. Partially visualized internal fixation at the right humeral head. IMPRESSION: 1. Continued progression of patchy bilateral opacities in bilateral mid and lower lung zones which co uld represent pneumonia and/or pulmonary edema. Reviewed, dictated and finalized at location A. UCT MERCHANDISER IMPRESSION: 1. Continued progression of patchy bilateral opacities in bilateral mid and low er lung zones which could represent pneumonia and/or pulmonary edema.
[2021-06-30 23:48] VITALS: BP 112/66; PULSE 59; RESP 12; TEMP 36.4; O2SAT 98
[2021-06-30 23:57] VITALS: BP 112/66; PULSE 59; RESP 8; O2SAT 98
[2021-07-01] VITALS (26 sets, daily range): BP systolic 108–124; BP diastolic 49–91; PULSE 55–95; RESP 7–26; TEMP 36.1–36.7; O2SAT 82–100; BMI 21.7
--- NOTE | 2021-07-01 | ECG_ITS ---
Measurements Intervals [place] Rate: 58 P: 24 WA: 185 QRS: 4 QRSD: 96 T: 50 QT: 430 QTc: 422 Interpretive Statements SINUS BRADYCARDIA INCOMPLETE RIGHT BUNDLE BRANCH BLOCK DELAYED PRECORDIAL R/S TRANSITION LOW QRS VOLTAGE IN PRECORDIAL LEADS BORDERLINE ST-T WAVE ABNORMALITY- DIFFUSE LEADS BASELINE ARTIFACT- II, III, AVF, V1, V3-V6 BORDERLINE ECG Electronically Signed On 07-01-2021 8:59:46 FILING WRITER by Nam Rosenberg D.O.
--- NOTE | 2021-07-01 00:09 | ED.GENADULT ---
HPI - General Adult General Chief complaint: Weakness Stated complaint: WEAKNESS AND LETHARGY Time Seen by Provider: 06/30/21 23:56 Source: RN notes reviewed History of Present Illness HPI narrative: Patient presents emergency department from home via EMS for weakness. Patient has a history of multiple myeloma is receiving radiation and infusions per the patient and the patient's been more weak over the past 2 to 3 days with progressive worsening he normally walks with a walker was unable to get up and ambulate today patient is awake and alert x3 denies any fevers or chills chest pain shortness of breath abdominal pain or any other symptoms Related Data Home Medications Medication Instructions Recorded Confirmed atorvastatin 40 mg PO HS 03/10/21 07/01/21 finasteride 5 mg PO HS 03/10/21 07/01/21 oxybutynin chloride 5 mg PO HS 03/10/21 07/01/21 timolol maleate 1 drp EACH EYE BID 03/10/21 07/01/21 morphine 15 mg PO Q4H PRN 05/02/21 07/01/21 travoprost [Travatan Z] 1 drp EACH EYE QPM 05/02/21 07/01/21 Allergies Allergy/AdvReac Type Severity Reaction Status Date / Time bee venom protein (honey bee) Allergy Unknown Verified 06/30/21 23:58 [bees] Wasp Allergy Unknown Unknown Uncoded 06/30/21 23:58 Review of Systems Review of Systems: Gen.: Denies fevers or chills ENT: Denies congestion Respiratory: Denies shortness of breath or cough CV: Denies chest pain or palpitations GI: Denies abdominal pain nausea, emesis or diarrhea Musculoskeletal: Denies back pain or muscle pain Neuro: See HPI Skin: Denies rash Except as documented, all other systems reviewed and negative [facility] Past Medical History Medical History Anemia Atrial fibrillation BPH (benign prostatic hyperplasia) Glaucoma Hepatitis B carrier History of prostate cancer History of subdural hematoma Hyperlipidemia Multiple myeloma Right humeral fracture 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 Surgical History Surgical History (Updated 05/03/21 @ 16:26 by Davonte Maria MD) Cataract extraction status History of cranial surgery Barrel hole due to subdural hematoma S/P ORIF (open reduction internal fixation) fracture Right humerus Family History Family History Mother Cerebrovascular accident Cancer Father Carcinoma of colon Sibling Carcinoma of colon BPH (benign prostatic hyperplasia) Cancer Heart problem Social History Social History Social History: The patient served in the [employer] for 30 years where he worked in [email or web address]. He is and lives with his who still works full-time. The patient and his have adopted a daughter. He is a lifelong nonsmoker. His is the durable power threading machine feeder automatic for healthcare. Code status full code Smoking status: Never smoker Second hand tobacco smoke exposure: No Alcohol intake: current Drinks per week: 7 Alcohol use details: 2 beers/day Substance use: never Substance use type: does not use Spiritual care concerns: No Exam Narrative: APPEARANCE: No acute distress, nontoxic, resting in bed EYES: EOMI, PERRL HEENT: Normocephalic, atraumatic, OMM RESPIRATORY: No respiratory distress Clear to auscultation bilaterally with no rhonchi wheezing or rales. CARDIOVASCULAR: Regular rate and rhythm without murmurs rubs or gallops. ABDOMINAL: Soft, nontender, nondistended, no rebound or guarding MUSCULOSKELETAl: Moves all extremities. No clubbing, cyanosis or edema. NEURO: Awake and alert x 3. Following commands, speech normal, no focal deficits SKIN:: Warm, dry. No rashes lesions or abrasions PSYCHIATRIC: Normal affect/mood, Course Course Emergency Course: Called discussed with oncology at [place] for Dr. Barrios discussed with presentation work-up agrees with patient being transferred 1
[2021-07-01] MEDS: SODIUM CHLORIDE 0.9% IV 1,000 ML 999 ML IV CONT (00:20)
[2021-07-01 00:49] LABS: Basophils Percent Auto 0.4 % (0.2-1.2); Eosinophils Absolute Auto 0.1 K/mm3 (0-0.3); Eosinophils Percent Auto 1.2 % (0-4.4); Hematocrit 21.5 % (42.0-52.0); Immature Granulocyte Absolute 0.04 K/mm3 (0.00-0.031); Immature Granulocyte Percent A 0.8 % (0-0.5); Immature Platelet Fraction Pct 2.4 % (0.9-11.2); Lymphocytes Absolute Auto 0.63 K/mm3 (0.9-3.2); Lymphocytes Percent Auto 12.8 % (18.3-44.2); Mean Corpuscular HGB Conc 32.1 g/dl (32-36); Mean Corpuscular Hemoglobin 33.2 pg (26-34); Mean Corpuscular Volume 103.4 fl (80-100); Mean Platelet Volume 10.2 fl (7.4-10.4); Monocytes Percent Auto 19.8 % (2.6-8.5); Neutrophils Absolute Auto 3.2 K/mm3 (1.3-6.7); Platelet Count Result 83 k/mm3 (150-375); Red Blood Count 2.08 M/mm3 (4.6-6.20); Red Cell Distribution Width 20.4 % (11.5-14.5); White Blood Count 4.9 K/mm3 (4.5-10.0)
[2021-07-01 00:59] LABS: Prothrombin Time 82.6 Seconds (11.1-14.7)
[2021-07-01 01:23] LABS: Alanine Aminotransferase 282 U/L (4-50); Albumin Level 3.3 g/dL (3.5-5.1); Alkaline Phosphatase 110 U/L (38-126); Anion Gap 23 mmol/L (8-16); Aspartate Amino Transferase 279 U/L (17-59); Bilirubin,Total 1.2 mg/dL (0.2-1.3); Blood Urea Nitrogen 24 mg/dL (9-20); Calcium 8.9 mg/dL (8.4-10.2); Carbon Dioxide 15 mmol/L (22-30); Chloride 101 mmol/L (98-107); Estimated CRCL calculation 15 ml/min; Estimated Glomerular Filt Rate 21; Glucose 108 mg/dL (65-110); Potassium 4.1 mmol/L (3.4-5.0); Sodium 139 mmol/L (137-145)
[2021-07-01 01:31] LABS: Hemoglobin 6.9 g/dL (14.0-18.0)
[2021-07-01 01:32] LABS: SARS-CoV-2 RNA PCR Negative
[2021-07-01 01:35] LABS: Microcytosis 1+ (NORMAL); Platelet Estimate Decreased (Adequate); Spherocytes 1+ (NORMAL)
[2021-07-01 01:39] LABS: INR 10.9
[2021-07-01 02:23] LABS: Alveolar/Arterial O2 Gradient 35.1 mmHg; Base Excess ABG -5.3 mEq/l (+/-2.0); Carboxyhemoglobin 0.4 % THb (0-2.0); Fractional Inspired Oxygen 21 %; HCO3 ABG 18.1 mEq/l (22.0-26.0); Methemoglobin ABG 0.2 %THb (0-1.5); Oxygen Content ABG 10.9 %vol (16.0-22.0); Oxygen Saturation ABG 96.5 % (95.0-100.0); Oxyhemoglobin 94.1 % THb (90.0-100.0); PCO2 ABG 27.7 mmHg (35.0-45.0); PO2 ABG 81.5 mmHg (80.0-100.0); PO2 FiO2 Ratio Arterial Blood 3.88 %; Reduced Hemoglobin 5.3 %THb (0-5.0); Total Hemoglobin 8.1 g/dL (12.0-18.0); pH ABG 7.434 (7.350-7.450)
[2021-07-01 02:24] LABS: Device ROOM AIR; Modified Allen's Test Pass; Site Drawn RIGHT RADIAL
[2021-07-01 03:23] LABS: Add Urine Microscopic? YES; Appearance Urine Cloudy (Clear); Bacteria Urine Trace /hpf; Bilirubin Urine Negative (Negative); Blood Urine 1+ (Negative); Color Urine Amber (Yellow); Glucose Urine UA 1+ mg/dL (Negative); Ketones Urine Negative (Negative); Leukocyte Esterase Ur Negative LEU/UL (Negative); Mucus Urine Rare /lpf; Nitrate Urine Negative (Negative); Protein Urine 3+ mg/dL (Negative); Specific Grav Ur 1.017 (1.001-1.035); Urobilinogen Urine Negative mg/dL (<2.0)
--- NOTE | 2021-07-01 04:17 | PC.NURSE ---
RN called lab type and screen has not resulted yet. RN unable to start blood. Per lab the type and screen is being ran currently.
--- NOTE | 2021-07-01 05:09 | PC.NURSE ---
This patient, Marvin Henderson, was admitted to [facility] Surg Room 322-02. Patient/family oriented to hospital policies and general routines including ID bracelet, bed and alarms, visiting hours, pain management, procedures, bathroom and other care routines, personal items, smoking policy, room service/diet, and visiting hours. Information on how to activate the Rapid Response Team has been discussed. Patient/Family are encouraged to report perceived risks to care and to ask questions if they do not understand what they are told or what they should do.
--- NOTE | 2021-07-01 08:05 | PM.IMHP ---
H&P: HPI History of Present Illness Date/Time: 07/01/21 08:05 Chief Complaint: Weakness Narrative: Patient is an 85-year-old man with a history of multiple myeloma who is currently receiving radiation to his right arm and upper back and Zometa infusion with Dr. Barrios Oncology with [facility], atrial fibrillation on Eliquis, who presented to the emergency room with gradual weakness over the last 2-3 days. The patient last had his Radiation and Infusion on 06/24/21. He had been doing well, states his , but was sleeping more and she had to remind him to eat and drink. Then on Monday, he at dinner and walked down the stairs to use the restroom and his did not see him come back upstairs. She went down to check on him and he had become very weak. She tried to get him dressed to bring him to the ER but she could not help him with all of his weakness and called EMS. Initial vitals showed stable blood pressure 112/66, slight bradycardia 59 beats per minute, afebrile, normal oxygenation 98% on room air. Normal white blood cell count 4900, severe macrocytic anemia with a hemoglobin of 6.9, hematocrit 21%. Thrombocytopenia at 83,000. Elevated INR at 10.9, PT 82, PTT is 76. ABG showed normal pH, low pCO2 at 27, low HC03 18 on room air. DHARA with a creatinine at 2.9, BUN 24. Patient has an elevated anion gap at 23 which is consistent with dehydration and DHARA. Elevated LFTs with an AST of 279, ALT 282. Urinalysis is cloudy, jagdeep, 3+ protein, 1+ blood, WBCs 10-15. No signs of acute infection. COVID PCR was negative. Chest x-ray shows mild opacities in left lower lung zone which could represent atelectasis versus pneumonia. CT head showed No acute intracranial abnormality. Age related findings. Lytic lesion and pathologic fracture of the right mandibular condyle, consistent with history of multiple myeloma. Patient was admitted into the hospital for acute anemia, dehydration DHARA, elevated LFTs. The patient had been on Revlimid and Dexamethasone about 2 years ago for his MM and believed was treating it well. Then they noticed a recurrence last fall and he started the treatment again in April then came to the hospital with respiratory failure, bilateral pneumonia, NSTEMI after the treatment. They then began radiation to his right arm in May. He is about to start a new oral chemo pill in the next coming weeks with Dr. Barrios. Patient was admitted to the hospital under observation status Review of Systems Review of Systems: ROS unobtainable: Yes unobtainable due to mental status (mildly confused, able to answer some questions, Hx given by ) [facility] Past Medical History Medical History Anemia Atrial fibrillation BPH (benign prostatic hyperplasia) Glaucoma Hepatitis B carrier History of prostate cancer History of subdural hematoma Hyperlipidemia Multiple myeloma Right humeral fracture 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 Surgical History Surgical History Cataract extraction status History of cranial surgery Barrel hole due to subdural hematoma S/P ORIF (open reduction internal fixation) fracture Right humerus Family History Family History Mother Cerebrovascular accident Cancer Father Carcinoma of colon Sibling Carcinoma of colon BPH (benign prostatic hyperplasia) Cancer Heart problem Social History Social History Social History: The patient served in the [employer] for 30 years where he worked in [employer]. He is and lives with his who still works full-time. The patient and his have adopted a daughter. He is a lifelong nonsmoker. His is the durable power health care attorney for healthcare. Code status full code Smoking status: Never smoker Sec
[2021-07-01] MEDS: SODIUM CHLORIDE 0.9% IV 1,000 ML 80 ML IV CONT (10:30)
[2021-07-01 11:48] LABS: Hematocrit 24.9 % (42.0-52.0); Hemoglobin 7.9 g/dL (14.0-18.0)
[2021-07-01 11:58] LABS: Alanine Aminotransferase 267 U/L (4-50); Albumin Level 3.1 g/dL (3.5-5.1); Alkaline Phosphatase 99 U/L (38-126); Anion Gap 18 mmol/L (8-16); Aspartate Amino Transferase 240 U/L (17-59); Bilirubin,Total 1.5 mg/dL (0.2-1.3); Blood Urea Nitrogen 25 mg/dL (9-20); Calcium 8.5 mg/dL (8.4-10.2); Carbon Dioxide 16 mmol/L (22-30); Chloride 104 mmol/L (98-107); Estimated CRCL calculation 17 ml/min; Estimated Glomerular Filt Rate 24; Glucose 89 mg/dL (65-110); Potassium 4.3 mmol/L (3.4-5.0); Sodium 138 mmol/L (137-145)
[2021-07-01 12:01] LABS: Prothrombin Time 86.5 Seconds (11.1-14.7)
[2021-07-01 12:01] LABS: Magnesium 2.6 mg/dL (1.6-2.3)
[2021-07-01 12:16] LABS: INR 11.5
[2021-07-01] MEDS: SODIUM CHLORIDE 0.9% IV 250 ML 30 ML IV CONT ×2 (13:50)
[2021-07-01] MEDS: FUROSEMIDE INJ 40 MG/4 ML VIAL 20 MG IV PUSH (20:22)
[2021-07-01] MEDS: IPRATROPIUM BR 0.02% INH SOLN 0.5 MG/2.5 ML VIAL 1.5 MG INHALATION (20:35)
[2021-07-01 20:41] LABS: Alveolar/Arterial O2 Gradient 321.6 mmHg; Base Excess ABG -13.5 mEq/l (+/-2.0); Fractional Inspired Oxygen 60 %; HCO3 ABG 13.1 mEq/l (22.0-26.0); Oxygen Content ABG 11.3 %vol (16.0-22.0); Oxygen Saturation ABG 90.8 % (95.0-100.0); Oxyhemoglobin 88.3 % THb (90.0-100.0); PO2 ABG 69.9 mmHg (80.0-100.0); PO2 FiO2 Ratio Arterial Blood 1.17 %
[2021-07-01 20:44] LABS: Device HIGH FLOW NASAL CANN; Modified Allen's Test Pass; Site Drawn RIGHT BRACHIAL; pH ABG 7.217 (7.350-7.450)
[2021-07-01] MEDS: ALBUTEROL SULFATE NEB 2.5 MG/0.5 ML INH 10 MG (21:12)
[2021-07-01 21:38] LABS: Hematocrit 25.6 % (42.0-52.0); Hemoglobin 7.9 g/dL (14.0-18.0)
--- NOTE | 2021-07-01 21:58 | P.PNCROSS_ITS ---
Event Note Event Note Event Note: The patient started to desaturate and I got a chest x-ray ABG and gave him Lasix IV. I discussed the case with the perennial house manager and we agreed to move the patient to IMU. The patient is requiring BiPAP. Although it looks more like it is metabolic acidosis. We started out with a settings with 14/7. Will repeat ABGs in 1 hour.
[2021-07-01 22:10] LABS: Bilirubin,Total 1.8 mg/dL (0.2-1.3); Iron 169 ug/dL (49-181)
[2021-07-01 22:11] LABS: Prothrombin Time 82.8 Seconds (11.1-14.7)
[2021-07-01 22:19] LABS: Transferrin 107 mg/dL (206-381)
[2021-07-01 22:20] LABS: INR 10.9; Percent Iron Saturation 109 % (20-50)
[2021-07-01 22:50] LABS: HAV RESULT Negative (Negative); Hepatitis B Core IgM Result Negative (Negative)
[2021-07-01 23:02] LABS: Hepatitis C Virus Antibody Negative (Negative)
--- NOTE | 2021-07-01 23:21 | PC.NURSE ---
Patient arrived from [address] [place] [address] remains [address] VS stable. Will continue to monitor closely.
[2021-07-01 23:44] LABS: Alveolar/Arterial O2 Gradient 288.4 mmHg; Base Excess ABG -9.1 mEq/l (+/-2.0); Fractional Inspired Oxygen 70 %; HCO3 ABG 14.5 mEq/l (22.0-26.0); Oxygen Content ABG 11.9 %vol (16.0-22.0); Oxygen Saturation ABG 99.3 % (95.0-100.0); Oxyhemoglobin 98.3 % THb (90.0-100.0); PO2 ABG 184.9 mmHg (80.0-100.0); PO2 FiO2 Ratio Arterial Blood 2.64 %; Total Hemoglobin 8.3 g/dL (12.0-18.0); pH ABG 7.399 (7.350-7.450)
[2021-07-01 23:45] LABS: Device NON-INVASIVE VENT; Site Drawn RIGHT BRACHIAL
--- NOTE | 2021-07-01 23:46 | PC.NURSE ---
07/01/2021 2310 pt transferred via bed w/oxygen assisted per nurse and tech to room 202-1.
[2021-07-01 23:47] LABS: Non-Invasive Expiratory Pressure 7 CMH2O; Non-Invasive Inspiratory Pressure 14 CMH2O; Non-Invasive Vent Rate 20 /MIN
[2021-07-02] VITALS (22 sets, daily range): BP systolic 94–127; BP diastolic 41–69; PULSE 59–73; RESP 16–24; TEMP 36.3–37.1; O2SAT 98–100
[2021-07-02] MEDS: LORazepam INJ (*CRX) 2 MG/ML VIAL 1 MG IV PUSH (02:50)
[2021-07-02 05:06] LABS: Immature Granulocyte Absolute 0.01 K/mm3 (0.00-0.031); Immature Granulocyte Percent A 0.2 % (0-0.5); Immature Platelet Fraction Pct 2.3 % (0.9-11.2); Lymphocytes Absolute Auto 0.46 K/mm3 (0.9-3.2); Mean Corpuscular HGB Conc 32.4 g/dl (32-36); Mean Corpuscular Hemoglobin 31.6 pg (26-34); Mean Corpuscular Volume 97.6 fl (80-100); Mean Platelet Volume 10.4 fl (7.4-10.4); Monocytes Absolute Auto 0.7 K/mm3 (0.1-0.6); Monocytes Percent Auto 13.7 % (2.6-8.5); Neutrophils Absolute Auto 3.9 K/mm3 (1.3-6.7); Neutrophils Percent Auto 77.1 % (45.5-73.1); Nucleated Red Blood Cells Perc 0.4 % (0.0-0.2); Platelet Count Result 65 k/mm3 (150-375); Red Blood Count 2.09 M/mm3 (4.6-6.20); Red Cell Distribution Width 22.6 % (11.5-14.5); White Blood Count 5.1 K/mm3 (4.5-10.0)
[2021-07-02 05:25] LABS: Hepatitis B Surface Antigen Positive (Negative)
[2021-07-02 05:25] LABS: Alanine Aminotransferase 255 U/L (4-50); Albumin Level 2.9 g/dL (3.5-5.1); Alkaline Phosphatase 84 U/L (38-126); Anion Gap 22 mmol/L (8-16); Aspartate Amino Transferase 303 U/L (17-59); Bilirubin,Total 1.7 mg/dL (0.2-1.3); Blood Urea Nitrogen 28 mg/dL (9-20); Calcium 8.2 mg/dL (8.4-10.2); Carbon Dioxide 12 mmol/L (22-30); Chloride 105 mmol/L (98-107); Estimated CRCL calculation 13 ml/min; Estimated Glomerular Filt Rate 19; Glucose 129 mg/dL (65-110); Potassium 4.2 mmol/L (3.4-5.0); Sodium 139 mmol/L (137-145)
[2021-07-02 05:47] LABS: Hematocrit 20.4 % (42.0-52.0)
[2021-07-02 05:48] LABS: Hemoglobin 6.6 g/dL (14.0-18.0)
[2021-07-02 05:50] LABS: Platelet Estimate Decreased (Adequate); Spherocytes 1+ (NORMAL)
--- NOTE | 2021-07-02 09:40 | PCSTNOTE ---
Therapist attempted to complete the Bedside Swallow Evaluation (BSE) for this patient however patient was both fast asleep and would not arouse, and he is on BiPAP for low oxygen saturation. Therapist spoke with nurse, Reinaldo, about attempting to complete the BSE when on BiPAP and she requested that the evaluation wait at this time. Will check in later.
[2021-07-02 10:13] LABS: Folic Acid 6.8 ng/mL (2.76->20)
[2021-07-02 10:25] LABS: Hematocrit 20.4 % (42.0-52.0); Hemoglobin 6.8 g/dL (14.0-18.0)
[2021-07-02 11:17] LABS: Alveolar/Arterial O2 Gradient 80.9 mmHg; Base Excess ABG -8.4 mEq/l (+/-2.0); Carboxyhemoglobin 0.3 % THb (0-2.0); Fractional Inspired Oxygen 30 %; HCO3 ABG 14.7 mEq/l (22.0-26.0); Methemoglobin ABG 0.4 %THb (0-1.5); Oxygen Content ABG 10.5 %vol (16.0-22.0); Oxygen Saturation ABG 98.2 % (95.0-100.0); Oxyhemoglobin 96.5 % THb (90.0-100.0); PO2 ABG 106.9 mmHg (80.0-100.0); PO2 FiO2 Ratio Arterial Blood 3.56 %; Reduced Hemoglobin 2.8 %THb (0-5.0); pH ABG 7.439 (7.350-7.450)
[2021-07-02 11:18] LABS: PCO2 ABG 22.2 mmHg (35.0-45.0)
[2021-07-02 11:19] LABS: Site Drawn LEFT BRACHIAL; Total Hemoglobin 7.6 g/dL (12.0-18.0)
[2021-07-02 11:20] LABS: Device BIPAP; Expiratory Pressure 7 cmH2O; Inspiratory Pressure 14 cmH2O; Modified Allen's Test Pass
--- NOTE | 2021-07-02 11:35 | PCSTNOTE ---
Therapist attempted to see patient a second time today; patient remains fast asleep and on BiPAP machine to assist with oxygen saturation levels. Bedside Swallow Evaluation will not be attempted today but will check again tomorrow.
[2021-07-02] MEDS: TIMOLOL MALEATE 0.5% OP SOLN 5 ML BOTTLE 1 DROP EACH EYE ×2 (11:57→21:50)
[2021-07-02 15:52] LABS: IFOB Positive Control Positive; Immunochemical Fecal Occult Bl Positive (N)
--- NOTE | 2021-07-02 17:14 | PM.IMPN ---
Progress Note: A&P Assessment and Plan (1) Symptomatic anemia: Code(s): D64.9 - Anemia, unspecified Status: Acute Assessment and Plan: Patient presented with weakness and lethargy in found to be anemic with a hemoglobin of 6.9. Most likely due to multiple myeloma treatment with infusion and radiation. ER physician talked to the oncologist on-call for [facility] who recommended giving 1 unit of blood. Will also check further labs within iron panel, vitamin B12, folic acid H&H after 1 Unit was 7.9/24.9%. INR increased to 11.5. Talked to Dr. Barrios who recommended giving 2 Units of FFP at this time and rechecking INR 6 hours after infusion. If it is still elevated at that time, then recommend to give Vitamin K. Continue monitoring H&H every 6 hours. Transfuse as needed if hemoglobin less than 7. 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 (2) Acute renal insufficiency: Code(s): N28.9 - Disorder of kidney and ureter, unspecified Status: Acute Assessment and Plan: Patient presents with DHARA with creatinine at 2.9, BUN 24, improved to 2.6/25. The patient normally has a creatinine is 0.9-1.0. Most likely due to dehydration and multiple myeloma treatment with chemo and radiation He is receiving IV fluids at 80 cc/hour at this time Continue monitoring his renal function. (3) Elevated liver enzymes: Code(s): R74.8 - Abnormal levels of other serum enzymes Status: Acute Assessment and Plan: Could be due to dehydration and malnutrition since he is currently undergoing multiple myeloma treatment AST is 279, ALT 282. Most likely LFT elevation is the cause of his elevated coag panel and INR He does have a history of being a Hepatitis B Carrier Continue monitoring LFTs. (4) Elevated INR: Code(s): R79.1 - Abnormal coagulation profile Status: Acute Assessment and Plan: INR on arrival is 10.9 and no treatment was given in the emergency room. Patient is currently getting 1 unit of blood. Repeat INR was even higher at 11.5. Recommended by Dr. Barrios to give IV FFP 2 Units and recheck INR in 6 hours after infusion completed. Continue monitoring closely. No signs of acute bleeding at this time. (5) Weakness: Code(s): R53.1 - Weakness Status: Acute Assessment and Plan: Most likely due to multiple myeloma treatment, dehydration and anemia Will order PT and OT therapy once the patient is stable (6) Multiple myeloma: Code(s): C90.00 - Multiple myeloma not having achieved remission Status: Acute Assessment and Plan: Sees Dr. Barrios at [facility] who does not come to our facility. Will try to talk with Dr. Barrios about the patient during his hospitalization but the patient does need to follow-up with him after discharge for further evaluation and treatment Subjective Date/time seen: 07/02/21 17:14 Patient presented with weakness and lethargy in found to be anemic with a hemoglobin of 6.9. Most likely due to multiple myeloma treatment with infusion and radiation. ER physician talked to the oncologist on-call for [facility] who recommended giving 1 unit of blood.
[2021-07-02 17:43] LABS: Mean Corpuscular HGB Conc 33.3 g/dl (32-36); Mean Corpuscular Hemoglobin 32.7 pg (26-34); Mean Corpuscular Volume 98.1 fl (80-100); Mean Platelet Volume 9.6 fl (7.4-10.4); Platelet Count Result 54 k/mm3 (150-375); Red Blood Count 2.14 M/mm3 (4.6-6.20); Red Cell Distribution Width 23.1 % (11.5-14.5); White Blood Count 6.5 K/mm3 (4.5-10.0)
[2021-07-02 17:59] LABS: Anion Gap 20 mmol/L (8-16); Blood Urea Nitrogen 36 mg/dL (9-20); Calcium 8.4 mg/dL (8.4-10.2); Carbon Dioxide 15 mmol/L (22-30); Chloride 105 mmol/L (98-107); Estimated CRCL calculation 12 ml/min; Estimated Glomerular Filt Rate 16; Glucose 122 mg/dL (65-110); Magnesium 2.6 mg/dL (1.6-2.3); Potassium 4.3 mmol/L (3.4-5.0); Sodium 140 mmol/L (137-145)
--- NOTE | 2021-07-02 19:21 | PC.NURSE ---
Dr. Graham aware of labs, INR to be redrawn, lab thought results were skewed. Please report any elevated INR values to hospitalist this evening.
[2021-07-02 20:02] LABS: Prothrombin Time 118.6 Seconds (11.1-14.7)
[2021-07-02 20:04] LABS: INR 17.3
[2021-07-02 20:17] LABS: Base Excess ABG -4.6 mEq/l (+/-2.0); Carboxyhemoglobin 0.3 % THb (0-2.0); Fractional Inspired Oxygen 30 %; Methemoglobin ABG 0.4 %THb (0-1.5); Oxygen Content ABG 12.6 %vol (16.0-22.0); Oxygen Saturation ABG 96.6 % (95.0-100.0); Oxyhemoglobin 93.5 % THb (90.0-100.0); PO2 ABG 78.5 mmHg (80.0-100.0); PO2 FiO2 Ratio Arterial Blood 2.62 %; Reduced Hemoglobin 5.8 %THb (0-5.0); Total Hemoglobin 9.5 g/dL (12.0-18.0); pH ABG 7.474 (7.350-7.450)
[2021-07-02 20:19] LABS: Device BIPAP; Modified Allen's Test Pass; Site Drawn LEFT BRACHIAL
[2021-07-02 20:20] LABS: Expiratory Pressure 7 cmH2O; Inspiratory Pressure 14 cmH2O
[2021-07-02] MEDS: PHYTONADIONE INJ 10 MG/ML AMP 5 MG SUB-Q (21:49)
[2021-07-03] VITALS (19 sets, daily range): BP systolic 100–126; BP diastolic 52–68; PULSE 61–76; RESP 15–30; TEMP 35.7–36.8; O2SAT 92–100
[2021-07-03] MEDS: TUBING, BLOOD PLUM PUMP TUBING 1 EACH XX ×2 (03:40→11:05)
[2021-07-03] MEDS: SODIUM CHLORIDE 0.9% IV 250 ML 30 ML IV CONT ×2 (03:40→11:05)
--- NOTE | 2021-07-03 04:02 | PC.NURSE ---
07/03/21 at 0000 FFP infusing. Will check H&H in the AM.
[2021-07-03 07:53] LABS: Hematocrit 23.6 % (42.0-52.0); Hemoglobin 7.3 g/dL (14.0-18.0); Immature Platelet Fraction Pct 4.2 % (0.9-11.2); Mean Platelet Volume 11.2 fl (7.4-10.4); Platelet Count Result 60 k/mm3 (150-375)
[2021-07-03 08:05] LABS: Partial Thromboplastin Time 68.6 SECONDS (22.3-36.8); Prothrombin Time 106.4 Seconds (11.1-14.7)
[2021-07-03 08:09] LABS: Magnesium 2.8 mg/dL (1.6-2.3)
[2021-07-03 08:10] LABS: Fibrinogen 139 mg/dl (215-510)
[2021-07-03 08:31] LABS: D Dimer 2.12 ug/mL (<0.48)
--- NOTE | 2021-07-03 08:39 | PC.NURSE ---
Notified Dr. Graham of Patient status, PT, INR, Cloudy urine, Positive Occult stool. Blood cultures ordered, UA ordered, Lactic Ordered, BNP ordered.
[2021-07-03 09:20] LABS: NT Pro B Type Natriuretic Pept > 35000 pg/mL (5-100)
[2021-07-03] MEDS: FUROSEMIDE INJ 40 MG/4 ML VIAL 20 MG IV PUSH (09:26)
[2021-07-03 09:39] LABS: Hematocrit 24.1 % (42.0-52.0); Hemoglobin 7.7 g/dL (14.0-18.0); Mean Corpuscular Hemoglobin 32.2 pg (26-34); Mean Corpuscular Volume 100.8 fl (80-100); Mean Platelet Volume 11.1 fl (7.4-10.4); Platelet Count Result 57 k/mm3 (150-375); Red Blood Count 2.39 M/mm3 (4.6-6.20); Red Cell Distribution Width 23.3 % (11.5-14.5); White Blood Count 9.4 K/mm3 (4.5-10.0)
--- NOTE | 2021-07-03 09:49 | PCSTNOTE ---
BLUEPRINTING AND PHOTOCOPY SUPERVISOR attempted to complete bedside swallow evaluation today, but nursing reports that patient does not have level of alertness necessary to complete evaluation. BLUEPRINTING AND PHOTOCOPY SUPERVISOR will attempt to see patient tomorrow, 07/04/21.
[2021-07-03 09:54] LABS: Lactic Acid Reflex 9.9 mmol/L (0.7-2.1)
[2021-07-03] MEDS: PHYTONADIONE INJ 10 MG/ML AMP 5 MG IM (10:00)
--- NOTE | 2021-07-03 10:10 | PC.NURSE ---
Notified Dr Graham Patient is coughing and choking. Lung sounds coarse, audible coarseness. O2 sats decreasing on 4L. ordered 40L now. Doctor aware of 20 of Lasix given at 09:30.
[2021-07-03] MEDS: FUROSEMIDE INJ 40 MG/4 ML VIAL IV PUSH (10:20)
[2021-07-03 10:26] LABS: Add Urine Microscopic? YES; Appearance Urine Turbid (Clear); Bacteria Urine 4+ /hpf; Bilirubin Urine Negative (Negative); Blood Urine 3+ (Negative); Color Urine Red (Yellow); Glucose Urine UA 1+ mg/dL (Negative); Hyaline Casts Urine 30-49 /lpf; Ketones Urine Trace mg/dL (Negative); Leukocyte Esterase Ur Negative LEU/UL (Negative); Mucus Urine Few /lpf; Nitrate Urine Negative (Negative); Protein Urine 3+ mg/dL (Negative); RBC Urine >75 /hpf (0-2); Specific Grav Ur 1.017 (1.001-1.035); Squamous Epithelial Cell Urine Many /hpf (Few); Urobilinogen Urine Negative mg/dL (<2.0); WBC Urine >75 /hpf
[2021-07-03 10:56] LABS: Albumin Level 3.6 g/dL (3.5-5.1); Alkaline Phosphatase 96 U/L (38-126); Anion Gap 32 mmol/L (8-16); Bilirubin,Total 3.1 mg/dL (0.2-1.3); Blood Urea Nitrogen 42 mg/dL (9-20); Calcium 8.7 mg/dL (8.4-10.2); Carbon Dioxide 11 mmol/L (22-30); Chloride 103 mmol/L (98-107); Estimated CRCL calculation 11 ml/min; Estimated Glomerular Filt Rate 14; Glucose 42 mg/dL (65-110); Sodium 146 mmol/L (137-145)
[2021-07-03 10:59] LABS: Alanine Aminotransferase 446 U/L (4-50); Aspartate Amino Transferase 620 U/L (17-59)
[2021-07-03] MEDS: DEXTROSE 50% 25 GM/50 ML SYRINGE IV PUSH ×2 (11:20→11:21)
--- NOTE | 2021-07-03 11:42 | PC.NURSE ---
Spoke with patients Leticia. Patient is not alert or oriented. Explained to her the seriousness of his condition, stated she does not want her to be aFull Code at this point. She stated her would not want chest compressions or to be on a ventilator. I notified Dr. Graham Patients wishes to change his code status to a DNR. Dr Graham stated he will contact and change his code status.
[2021-07-03] MEDS: LORazepam INJ (*CRX) 2 MG/ML VIAL 1 MG IV PUSH (12:10)
[2021-07-03 12:17] LABS: Glucose Point of Care 27 mg/dl (65-105)
[2021-07-03 12:17] LABS: Glucose Point of Care 213 mg/dl (65-105)
[2021-07-03 12:33] LABS: Reflex Lactic Acid Yes or No Add Lactic
[2021-07-03] MEDS: MORPHINE SULFATE (*CRX) 2 MG/ML INJ IV PUSH ×2 (15:34→20:10)
[2021-07-03] MEDS: SCOPOLAMINE 1.5 MG PATCH TRANSDERM (16:38)
[2021-07-03] MEDS: LORazepam INJ (*CRX) 2 MG/ML VIAL IV PUSH (16:39)
--- NOTE | 2021-07-03 17:24 | PC.NURSE ---
This patient, Marvin Henderson, was transferred to [[facility] ] on 07/03/21 at 17:15. Personal belongings sent with patient. Report given to [Parish ]. Appropriate documentation sent with patient.
--- NOTE | 2021-07-03 17:46 | PC.NURSE ---
This patient, Marvin Henderson, was received from IMU on 07/03/21 at 1715. Patient/family oriented to unit policies and routines
--- NOTE | 2021-07-05 11:07 | PM.DDS ---
Discharge Summary Date and Time Date of : 07/03/21 Time of : 22:25 Provider Pronounced By: Miranda Maria RN Probable Cause of Probable Cause of : multiple myeloma anemia Summary Hospital Course: Patient presented with weakness and lethargy in found to be anemic with a hemoglobin of 6.9. Most likely due to multiple myeloma treatment with infusion and radiation. ER physician talked to the oncologist on-call for [facility] [place] who recommended giving 1 unit of blood. Will also check further labs within iron panel, vitamin B12, folic acid H&H after 1 Unit was 7.9/24.9%. INR increased to 11.5. Talked to Dr. Barrios who recommended giving 2 Units of FFP at this time and rechecking INR 6 hours after infusion. If it is still elevated at that time, then recommend to give Vitamin K. Continue monitoring H&H every 6 hours. Transfuse as needed if hemoglobin less than 7. 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 Patient clinicall symptoms were worsening, spoke with patient , placed patient comfort care, Patient on 07/03/2021 22:49 Additional Data Confirmation of as documented by pronouncing clinician: Pupillary Reflex, Palpable Pulses, Response to Stimuli, Heart Tones and Breath Sounds Name of Provider Notified: Emily Mike Time Provider Notified: 22:25 Provider Requests Autopsy: No Family Requests Autopsy: No Acid Filler Notified: Yes Date [facility] Notified of : 07/03/21 Time [facility] Notified of : 22:49
[2021-07-09 15:12] LABS: Reference Lab Test Result Reactive
== END 2021-07-03 22:25 | disposition expired | DRG 812 ==
LOC: ANHED 07-01 00:22 → ANH3MEDSUR 07-01 03:34 → ANHIMU 07-01 22:43 → ANH2MED 07-03 17:36
PROVIDERS: Nurse Practitioner; Physician Assistant; Admitting Provider Internal Medicine; Emergency Provider Emergency Medicine; PCP Family Medicine; Visit Provider Family Medicine
DX: D64.9 Anemia, unspecified (principal); E87.4 Mixed disorder of acid-base balance; C90.00 Multiple myeloma not having achieved remission; E46 Unspecified protein-calorie malnutrition; N18.4 Chronic kidney disease, stage 4 (severe); Y84.2 Radiological procedure and radiotherapy as the cause of abnormal reaction of the patient, or of later complication, without mention of misadventure at the time of the procedure; N28.9 Disorder of kidney and ureter, unspecified; D63.0 Anemia in neoplastic disease; E86.0 Dehydration; R53.83 Other fatigue; R74.8 Abnormal levels of other serum enzymes; Z20.822 Contact with and (suspected) exposure to COVID-19; I48.91 Unspecified atrial fibrillation; E78.5 Hyperlipidemia, unspecified; R79.1 Abnormal coagulation profile; R06.02 Shortness of breath; Z92.3 Personal history of irradiation; Z85.46 Personal history of malignant neoplasm of prostate; Z98.49 Cataract extraction status, unspecified eye; Z79.01 Long term (current) use of anticoagulants; Z68.23 Body mass index [BMI] 23.0-23.9, adult
CPT/HCPCS: 36415; 36430; 36600; 51701; 70450; 71045; 80048; 80053; 80074; 81001; 82247; 82248; 82274; 82375; 82607; 82728; 82746; 82805; 82948; 83050; 83540; 83550; 83605; 83735; 83880; 84466; 85014; 85018; 85025; 85027; 85049; 85055; 85380; 85384; 85610; 85730; 86850; 86900; 86901; 86920; 87040; 87086; 87340; 93005; 94002; 94003; 94640; 94660; 96360; 99285; A9270; C9803; G0378; J1940; J2060; J2270; J2543; J3430; J7030; J7050; P9016; P9017; U0003; U0005